=== PATIENT | female | born 1935 | race Caucasian/White ===

== ENCOUNTER 2016-09-19 20:25 | Inpatient (IN) | payer OTHER, MEDICARE ==
[2016-09-19 20:58] LABS: % IMMATURE GRANULYOCYTES 0.5 % (0.0-1.1); ABSOLUTE IMMATURE GRANULOCYTES 0.03 10^3/uL (0.00-0.10); ABSOLUTE NRBC COUNT 0.08 10^3/uL (0-0.01); ADD DIFF? NO; ADD MORPH? YES; ADD SCAN? NO; ATYPICAL LYMPHOCYTE FLAG 90 (0-99); FRAGMENT RBC FLAG 0 (0-99); HEMATOCRIT 39.8 % (38.0-47.0); HEMOGLOBIN 14.5 g/dL (12.6-16.3); LEFT SHIFT FLG 20 (0-99); LIPEMIA HEMOLYSIS FLAG 90 (0-99); MEAN CELL HEMOGLOBIN 33.3 pg (27.9-34.1); MEAN CELL HEMOGLOBIN CONCENTR. 36.4 g/dL (32.4-36.7); MEAN CELL VOLUME 91.3 fL (81.5-99.8); MEAN PLATELET VOLUME 10.9 fL (8.7-11.7); PLATELET CLUMPS FLAG 10 (0-99); PLATELET COUNT 90 10^3/uL (150-400); RED BLOOD CELL COUNT 4.36 10^6/uL (4.18-5.33); RED CELL DISTRIBUTION WIDTH 18.5 % (11.5-15.2)
[2016-09-19 21:05] LABS: NRBC-AUTO% 1.3 % (0.0-0.2)
[2016-09-19 21:10] LABS: ANION GAP 14 mEq/L (8-16); CALCIUM 8.7 mg/dL (8.5-10.4); CARBON DIOXIDE 23 mEq/l (22-31); CHLORIDE 99 mEq/L (97-110); GLOMERULAR FILTRATION RATE 24; GLUCOSE 103 mg/dL (70-100); POTASSIUM 3.2 mEq/L (3.5-5.2); SODIUM 136 mEq/L (134-144)
--- NOTE | 2016-09-19 21:16 | CPEKG ---
Heart Rate: 88 RR Interval: 682 P-R Interval: 124 QRSD Interval: 98 QT Interval: 344 QTC Interval: 417 P [place]: -9 QRS [place]: -30 T Wave [place]: 116 EKG Severity - ABNORMAL ECG - EKG Impression: SINUS RHYTHM EKG Impression: VENTRICULAR PREMATURE COMPLEX EKG Impression: LEFT AXIS DEVIATION EKG Impression: NONSPECIFIC T ABNORMALITIES, LATERAL LEADS Electronically Signed By: Mahogany Liao 19-Sep-2016 23:17:54
[2016-09-19 21:58] LABS: MACROCYTES 1+; PLATELET ESTIMATE DECREASED (ADEQ); POLYCHROMASIA 1+; SCHISTOCYTES 1+
[2016-09-19] MEDS ORDERED: NS 500 ML IV ONE (22:41)
--- NOTE | 2016-09-19 22:50 | EDPHY ---
H & P Smoking Status: Never smoked Time Seen by Provider: 09/19/16 20:38 HPI/ROS: CHIEF COMPLAINT: Unwitnessed fall HISTORY OF PRESENT ILLNESS: 81-year-old female presents to the emergency department after having an unwitnessed fall at home. Per EMS, the patient fell. The patient thinks that she slipped on something and then fell back and hit her head. She did not lose consciousness. She did pushed her lifeline and EMS transported to the emergency department. She denies a headache. Denies neck or back pain. Denies chest pain or difficulty breathing. He denies abdominal pain. She apparently has had an ongoing cough for last several days and was diagnosed with possible pneumonia today. She was started on Levaquin and took her 1st dose today. Patient also tells me that she has had diarrhea for last few days. No blood in her stool. No known fevers or chills. REVIEW OF SYSTEMS: Constitutional: No fever, no chills. Eyes: No double or blurry vision. ENT: No sore throat. Respiratory: Cough, no shortness of breath. Cardiac: No chest pain. Gastrointestinal: Diarrhea as above. No abdominal pain or vomiting Genitourinary: No dysuria. Musculoskeletal: No neck or back pain. Skin: No rashes. Neurological: No headache. (Mary Lou Randall) Past Medical/Surgical History: Anxiety, depression, migraine headaches, abdominal surgery (Mary Lou Randall) Social History: and lives in [place] (Mary Lou Randall) Physical Exam: General Appearance: Alert, no distress. 95% on room air. Afebrile. Eyes: Pupils equal and round. Extraocular motions are all intact. ENT: Mouth: Mucous membranes moist. Respiratory: No wheezing, rhonchi, or rales, lungs are clear to auscultation. Cardiovascular: Regular rate and rhythm. Gastrointestinal: Abdomen is soft and nontender, no masses, no rebound or guarding, bowel sounds normal. Neurological: Alert and oriented x 3, cranial nerves II through XII grossly intact Skin: Scalp hematoma to the right occiput of the scalp. No evidence of laceration or puncture wound. No bleeding. Warm and dry, no rashes. Musculoskeletal: Nontender to palpate along the cervical, thoracic or lumbar spine. Neck is supple. Extremities: Full range of motion and no peripheral edema. Psychiatric: Patient is oriented X 3, there is no agitation. (Mary Lou Randall) Constitutional: Initial Vital Signs Temperature (C) 36.6 C 09/19/16 20:57 Heart Rate 93 09/19/16 20:57 Respiratory Rate 14 09/19/16 20:57 Blood Pressure 117/45 L 09/19/16 20:57 O2 Sat (%) 95 09/19/16 20:57 O2 Delivery Mode Room Air Allergies/Adverse Reactions: prochlorperazine edisylate [From Compazine] Allergy (Severe, Verified 09/19/16 20:56) "LOST CONTROL OF NECK MUSCLES prochlorperazine maleate [From Compazine] Allergy (Severe, Verified 09/19/16 20: 56) "LOST CONTROL OF NECK MUSCLES Penicillins Allergy (Intermediate, Verified 09/19/16 20:56) Rash cocoa [chocolate] Allergy (Verified 09/19/16 20:56) divalproex sodium [From Depakote] Allergy (Verified 09/19/16 20:56) WHEAT SENSITIVITY Allergy (Uncoded 09/20/15 14:39) Home Medications: Medication Instructions Recorded Cholecalciferol Vit D3 [Vitamin D3 1,000 units PO DAILY 07/09/14 (*)] FLUoxetine [Prozac 20 MG (*)] 20 mg PO DAILY 07/09/14 Pantoprazole Sodium [Protonix 40mg 40 mg PO DAILYAC 07/09/14 (*)] Sumatriptan Succinate [Imitrex] 50 - 100 mg PO DAILY PRN 07/09/14 Zolpidem Tartrate [Ambien 5MG (*)] 5 mg PO HS 07/09/14 Herbals/Supplements -Info Only 1 ea PO DAILY 07/04/15 LORAZEPAM 09/19/16 Levaquin 09/19/16 Topamax 09/19/16 Medical Decision Making - Diagnostics Imaging: CT imaging of the head and cervical spine reveal nothing acute. No intracranial bleeding or fractures. (Mary Lou Randall) ED Course/Re-evaluation: The patient was evaluated and managed by the physician's blood donor unit assistant. My cosignature indicates that I reviewed the chart and I agree with the findings and plan of care as documented. I am the secondary supervising physician. ( Mahogany Liao) 81-year-old female presents after having an unwitnessed fall at home. Patient had CT imaging of her head and cervical spine which revealed nothing acute. Laboratory studies revealed normal white blood cell count. Chemistries reveal normal sodium, potassium 3.2, BUN 27, creatinine of 2. Her creatinine 1 month ago was 1.4. Clinically I think the patient is dehydrated. She did receive IV normal saline in the emergency department. Patient will be admitted to the hospital for further evaluation and IV hydration. Patient did not have a chest x-ray when she was diagnosed with pneumonia earlier today and therefore one was ordered in the emergency department. (Mary Lou Randall) Differential Diagnosis: Head injury including but not limited to concussion, skull fracture, intraparenchymal contusion, subarachnoid, subdural and epidural hematoma. (Mary Lou Randall) - Data Points Laboratory Results: Laboratory Results 09/19/16 20:26 09/19/16 20:26 09/19/16 09/19/16 20:26 20:26 WBC 6.04 10^3/uL 10^3/uL (3.80-9.50) RBC 4.36 10^6/uL 10^6/uL (4.18-5.33) Hgb 14.5 g/dL g/dL (12.6-16.3) Hct 39.8 % % (38.0-47.0) MCV 91.3 fL fL (81.5-99.8) MCH 33.3 pg pg (27.9-34.1) MCHC 36.4 g/dL g/dL (32.4-36.7) RDW 18.5 % H % (11.5-15.2) Plt Count 90 10^3/uL L 10^3/uL (150-400) MPV 10.9 fL fL (8.7-11.7) Neut % (Auto) 40.8 % % (39.3-74.2) Lymph % (Auto) 40.6 % % (15.0-45.0) [place] % (Auto) 17.9 % H % (4.5-13.0) Eos % (Auto) 0.0 % L % (0.6-7.6) Baso % (Auto) 0.2 % L % (0.3-1.7) Nucleat RBC Rel Count 1.3 % H % (0.0-0.2) Absolute Neuts (auto) 2.47 10^3/uL 10^3/uL (1.70-6.50) Absolute Lymphs (auto) 2.45 10^3/uL 10^3/uL (1.00-3.00) Absolute Monos (auto) 1.08 10^3/uL H 10^3/uL (0.30-0.80) Absolute Eos (auto) 0.00 10^3/uL L 10^3/uL (0.03-0.40) Absolute Basos (auto) 0.01 10^3/uL L 10^3/uL (0.02-0.10) Absolute Nucleated RBC 0.08 10^3/uL H 10^3/uL (0-0.01) Immature Gran % 0.5 % % (0.0-1.1) Immature Gran # 0.03 10^3/uL 10^3/uL (0.00-0.10) Platelet Estimate DECREASED L (ADEQ) Polychromasia 1+ H Oval Macrocytes 1+ H Schistocytes 1+ H Smear Review By Pending Sodium 136 mEq/L mEq/L (134-144) Potassium 3.2 mEq/L L mEq/L (3.5-5.2) Chloride 99 mEq/L mEq/L (97-110) Carbon Dioxide 23 mEq/l mEq/l (22-31) Anion Gap 14 mEq/L mEq/L (8-16) BUN 27 mg/dL H mg/dL (7-23) Creatinine 2.0 mg/dL H mg/dL (0.6-1.0) Estimated GFR 24 Glucose 103 mg/dL H mg/dL (70-100) Calcium 8.7 mg/dL mg/dL (8.5-10.4) Medications Given: Discontinued Medications Sodium Chloride (Ns) 500 mls @ 0 mls/hr IV ONCE ONE PRN Reason: Wide Open Stop: 09/19/16 22:42 Last Admin: 09/19/16 22:45 Dose: 500 mls Departure - Departure Disposition: [facility] Acute Clinical Impression: Dehydration Fall at home Qualifiers: Encounter type: initial encounter Qualified Code(s): W19.XXXA - Unspecified fall, initial encounter; Y92.099 - Unspecified place in other non-institutional residence as the place of occurrence of the external cause Diarrhea Qualifiers: Diarrhea type: unspecified type Qualified Code(s): R19.7 - Diarrhea, unspecified Condition: Good
[2016-09-20] MEDS ORDERED: ALBUTEROL 3 ML DEYVIAL IH PRN (00:11)
[2016-09-20] MEDS ORDERED: ONDANSETRON 4 MG/2 ML VIAL IVP PRN (00:11)
[2016-09-20] MEDS ORDERED: ACETAMINOPHEN 500 MG TAB PO PRN (00:11)
[2016-09-20] MEDS ORDERED: ONDANSETRON DISINTEGRATING 4 MG TAB PO PRN (00:11)
[2016-09-20] MEDS ORDERED: NS 1,000 ML IV SCH (00:15)
[2016-09-20] MEDS: oxyCODONE IR 5 MG TAB PO PRN ×2 (01:13→21:05)
[2016-09-20] MEDS: BENZONATATE 100 MG CAP PO PRN ×3 (01:13→21:05)
[2016-09-20] MEDS: ZOLPIDEM TARTRATE 5 MG TAB PO PRN ×2 (01:13→21:06)
--- NOTE | 2016-09-20 04:43 | PDGENHP ---
History and Physical - Chief Complaint fall - History of Present Illness Patient was seen and evaluated on 09/19/2016. Patient is an 81-year-old female with a history of migraine headaches, anxiety/ depression who presents to the ED with a fall. Patient states for the past 5 days she has had a cough that has been getting progressively worse, associated with generalized fatigue and loss of appetite. Cough is productive of thick phlegm. In addition, she has also developed occasional episodes of diarrhea in the past 1-2 days. She was seen by her PMD for her symptoms on the day of presentation, was diagnosed with bronchitis and initiated on Levaquin. Patient took her 1st dose of Levaquin today without adverse event. This evening patient was in her kitchen when she stepped on something wet on the floor, slipped and fell backward. She struck her head on the ground, but denies LOC, remembers the entire event. She then pressed her Life Alert and was taken to the ED by EMS. She denies any preceding chest pain, palpitations, lightheadedness, dizziness. On arrival to the ED patient was afebrile hemodynamically stable. Labs revealed elevated BUN creatinine from previous baseline, hypokalemia. Chest x- ray did not reveal any obvious infiltrate. She was given IV fluid hydration and admitted to the hospital service for further management. History Information - Allergies/Home Medication List Allergies/Adverse Reactions: prochlorperazine edisylate [From Compazine] Allergy (Severe, Verified 09/19/16 20:56) "LOST CONTROL OF NECK MUSCLES prochlorperazine maleate [From Compazine] Allergy (Severe, Verified 09/19/16 20: 56) "LOST CONTROL OF NECK MUSCLES Penicillins Allergy (Intermediate, Verified 09/19/16 20:56) Rash cocoa [chocolate] Allergy (Verified 09/19/16 20:56) divalproex sodium [From Depakote] Allergy (Verified 09/19/16 20:56) WHEAT SENSITIVITY Allergy (Uncoded 09/20/15 14:39) Home Medications: Cholecalciferol Vit D3 [Vitamin D3 (*)] 1,000 units PO DAILY 07/09/14 [Last Taken 07/04/15] FLUoxetine [Prozac 20 MG (*)] 20 mg PO DAILY 07/09/14 [Last Taken 07/04/15] Pantoprazole Sodium [Protonix 40mg (*)] 40 mg PO DAILYAC 07/09/14 [Last Taken ] Sumatriptan Succinate [Imitrex] 50 - 100 mg PO DAILY PRN 07/09/14 [Last Taken Unknown] Zolpidem Tartrate [Ambien 5MG (*)] 5 mg PO HS 07/09/14 [Last Taken Unknown] Herbals/Supplements -Info Only 1 ea PO DAILY 07/04/15 [Last Taken Unknown] LORAZEPAM 09/19/16 [Last Taken Unknown] Levaquin 09/19/16 [Last Taken Unknown] Topamax 09/19/16 [Last Taken Unknown] I have personally reviewed and updated: family history, medical history, social history, surgical history - Past Medical History Additional medical history: Chronic migraine headaches. Anxiety/depression - Surgical History Additional surgical history: Small-bowel resection - Family History Positive for: non-pertinent - Social History Smoking Status: Never smoked Alcohol Use: None Drug Use: None Additional social history: Patient lives alone in an independent living facility , uses cane to ambulate. Daughter is involved in her care. Review of Systems ROS: 10pt was reviewed & negative except for what was stated in HPI & below Physical Exam Temp Pulse Resp BP Pulse Ox 36.7 C 91 20 116/60 96 09/20/16 03:36 09/20/16 03:36 09/20/16 03:36 09/20/16 03:36 09/20/16 03:36 O2 (L/minute) 2 Constitutional: no apparent distress, appears nourished, not in pain Eyes: PERRL, anicteric sclera, EOMI Ears, Nose, Mouth, Throat: hearing normal, ears appear normal, no oral mucosal ulcers, dry mucous membranes Cardiovascular: regular rate and rhythym, no murmur, rub, or gallop, pulses symmetric bilaterally, No JVD, No edema Peripheral Pulses: 2+: dorsalis-pedis (R), dorsalis-pedis (L) Respiratory: no respiratory distress, no rales or rhonchi, clear to auscultation , expiratory wheeze (occasional wheeze) Gastrointestinal: normoactive bowel sounds, soft, non-tender abdomen, no palpable masses Genitourinary: no bladder fullness, no bladder tenderness Skin: warm, normal color, no rashes or abrasions, no fluctuance, no induration, No mottled Musculoskeletal: full muscle strength, no muscle tenderness, normal joint ROM, no joint effusions Neurologic: AAOx3, sensation intact bilaterally, CN II-XII Intact, No weakness, No numbness, No pronator drift, No facial droop Psychiatric: interacting appropriately, not anxious, not encephalopathic, thought process linear Lab Data & Imaging Review 09/20/16 04:15 09/20/16 04:15 WBC 6.04 10^3/uL (3.80-9.50) 09/19/16 20: RBC 4.36 10^6/uL (4.18-5.33) 09/19/16 20: Hgb 14.5 g/dL (12.6-16.3) 09/19/16 20: Hct 39.8 % (38.0-47.0) 09/19/16 20: MCV 91.3 fL (81.5-99.8) 09/19/16 20: MCH 33.3 pg (27.9-34.1) 09/19/16 20: MCHC 36.4 g/dL (32.4-36.7) 09/19/16 20: RDW 18.5 % (11.5-15.2) H 09/19/16 20: Plt Count 90 10^3/uL (150-400) L 09/19/16 20: MPV 10.9 fL (8.7-11.7) 09/19/16 20: Neut % (Auto) 40.8 % (39.3-74.2) 09/19/16 20: Lymph % (Auto) 40.6 % (15.0-45.0) 09/19/16 20: [place] % (Auto) 17.9 % (4.5-13.0) H 09/19/16 20: Eos % (Auto) 0.0 % (0.6-7.6) L 09/19/16 20: Baso % (Auto) 0.2 % (0.3-1.7) L 09/19/16 20: Nucleat RBC Rel Count 1.3 % (0.0-0.2) H 09/19/16 20:26 Absolute Neuts (auto) 2.47 10^3/uL (1.70-6.50) 09/19/16 20:26 Absolute Lymphs (auto) 2.45 10^3/uL (1.00-3.00) 09/19/16 20:26 Absolute Monos (auto) 1.08 10^3/uL (0.30-0.80) H 09/19/16 20:26 Absolute Eos (auto) 0.00 10^3/uL (0.03-0.40) L 09/19/16 20:26 Absolute Basos (auto) 0.01 10^3/uL (0.02-0.10) L 09/19/16 20:26 Absolute Nucleated RBC 0.08 10^3/uL (0-0.01) H 09/19/16 20: Immature Gran % 0.5 % (0.0-1.1) 09/19/16 20: Immature Gran # 0.03 10^3/uL (0.00-0.10) 09/19/16 20:26 Platelet Estimate DECREASED (ADEQ) L 09/19/16 20:26 Polychromasia 1+ H 09/19/16 20:26 Oval Macrocytes 1+ H 09/19/16 20:26 Schistocytes 1+ H 09/19/16 20:26 Sodium 136 mEq/L (134-144) 09/19/16 20:26 Potassium 3.2 mEq/L (3.5-5.2) L 09/19/16 20:26 Chloride 99 mEq/L (97-110) 09/19/16 20:26 Carbon Dioxide 23 mEq/l (22-31) 09/19/16 20:26 Anion Gap 14 mEq/L (8-16) 09/19/16 20:26 BUN 27 mg/dL (7-23) H 09/19/16 20:26 Creatinine 2.0 mg/dL (0.6-1.0) H 09/19/16 20:26 Estimated GFR 24 09/19/16 20:26 Glucose 103 mg/dL (70-100) H 09/19/16 20:26 Calcium 8.7 mg/dL (8.5-10.4) 09/19/16 20:26 Visualized and Interpreted Chest x-ray results: Yes Chest X-Ray results: no infiltrate, normal Visualized and Interpreted imaging results: Yes Interpretation: CThead: no acute intracranial abnormality. CT c-spine: no acute fracture Visualized and Interpreted EKG results: Yes EKG Interpretation: Positive for: normal sinsus rhythm (lateral T wave flattening) Assessment & Plan Assessment: Patient is an 81-year-old female with history of chronic migraine headaches who presents to the ED after a mechanical fall in the setting of 1 week upper respiratory infection symptoms. ED workup reveals evidence of dehydration, no acute fracture from fall. Plan: # fall Patient's description of fall appears consistent with a mechanical fall ( slipped and fell). She denies any associated cardiac symptoms, but labs do show evidence of dehydration, which likely contributed to the fall. EKG does not show any obvious abnormalities. Will replete and monitor electrolytes, check troponin, check TTE and obtain PT/OT evaluation. # HOWARD BUN and Cr are elevated and patient appears dry on presentation, consistent with pre-renal HOWARD. Will continue gentle IVF hydration, trend BMP and replete electrolytes. # acute bronchitis Patient reports worsening cough x 5 days, for which she was evaluated by her PMD and initiated on treatment for acute bronchitis. On presentation today, patient is afebrile, without leukocytosis and cxr does not reveal infiltrate, however, patient has a thick, wet cough. Will check flu swab and continue treatment for bronchitis with levaquin. # thrombocytopenia This appears to be a new problem based on review of old labs. Etiology of this unclear, possibly medication related vs related to acute infection. No associated coagulopathy. Will hold DVT ppx and trend CBC. # chronic migraine headaches Patient denies VIRAMONTES today. Will continue home regimen prn. # anxiety/depression Stable, cont home meds. # dispo: admit to inpt service for likely > 2 [place] stay # gen: regular diet DVT ppx: SCDs Full code
[2016-09-20 05:05] LABS: ABSOLUTE NRBC COUNT 0.04 10^3/uL (0-0.01); ADD DIFF? YES; ADD MORPH? NO; FRAGMENT RBC FLAG 0 (0-99); HEMATOCRIT 32.1 % (38.0-47.0); HEMOGLOBIN 11.6 g/dL (12.6-16.3); LEFT SHIFT FLG 40 (0-99); LIPEMIA HEMOLYSIS FLAG 90 (0-99); MEAN CELL HEMOGLOBIN 33.4 pg (27.9-34.1); MEAN CELL HEMOGLOBIN CONCENTR. 36.1 g/dL (32.4-36.7); MEAN CELL VOLUME 92.5 fL (81.5-99.8); MEAN PLATELET VOLUME 10.1 fL (8.7-11.7); NRBC-AUTO% 0.7 % (0.0-0.2); PLATELET CLUMPS FLAG 0 (0-99); PLATELET COUNT 71 10^3/uL (150-400); RED BLOOD CELL COUNT 3.47 10^6/uL (4.18-5.33)
[2016-09-20] MEDS ORDERED: PROTOCOL MAGNESIUM 1 DOSE IV PRN (05:13)
[2016-09-20] MEDS ORDERED: PROTOCOL POTASSIUM 1 DOSE MISC PRN (05:13)
[2016-09-20 05:20] LABS: INR 1.19 (0.83-1.16); PROTIME(PATIENT) 15.1 SEC (12.0-15.0)
[2016-09-20 05:21] LABS: APTT 29.8 SEC (23.0-38.0)
[2016-09-20 05:31] LABS: ADD SCAN? NO; ATYPICAL LYMPHOCYTE FLAG 120 (0-99)
[2016-09-20 05:35] LABS: ANION GAP 10 mEq/L (8-16); CALCIUM 7.6 mg/dL (8.5-10.4); CARBON DIOXIDE 21 mEq/l (22-31); CHLORIDE 102 mEq/L (97-110); CREATININE 1.6 mg/dL (0.6-1.0); GLOMERULAR FILTRATION RATE 31; GLUCOSE 98 mg/dL (70-100); MAGNESIUM 1.3 mg/dL (1.6-2.3); POTASSIUM 2.9 mEq/L (3.5-5.2); SODIUM 133 mEq/L (134-144)
[2016-09-20 05:55] LABS: COLOR YELLOW; LEUKOCYTE ESTERASE,URINE NEGATIVE (NEGATIVE); NITRITE,URINE NEGATIVE (NEGATIVE)
[2016-09-20] MEDS ORDERED: IPRATROPIUM/ALBUTEROL 3 ML DEYVIAL IH SCH (06:00)
[2016-09-20] MEDS ORDERED: HEPARIN 5,000 UNIT/0.5 ML SYR SC SCH (06:00)
[2016-09-20] MEDS ORDERED: IPRATROPIUM/ALBUTEROL 3 ML DEYVIAL IH PRN (06:00)
[2016-09-20 06:25] LABS: TROPONIN I 0.051 ng/mL (0-0.034)
[2016-09-20 06:52] LABS: PLATELET ESTIMATE DECREASED (ADEQ); POLYCHROMASIA 1+
[2016-09-20] MEDS ORDERED: POTASSIUM CL 10 MEQ TAB PO ONE ×2 (07:43→19:21)
[2016-09-20] MEDS ORDERED: MAGNESIUM SULF 2 GM/WATER 50 ML IV ONE (07:45)
[2016-09-20] MEDS ORDERED: OSELTAMIVIR PHOSPHATE 75 MG CAP PO SCH ×2 (08:00→08:29)
[2016-09-20] MEDS ORDERED: POTASSIUM CL 20 MEQ TAB PO ONE (08:28)
[2016-09-20] MEDS ORDERED: levOFLOXACIN 500 MG/DEXTROSE 100 ML IV SCH (09:00)
[2016-09-20] MEDS: OSELTAMIVIR 6 MG/ML UDSYR PO SCH ×2 (09:29→18:01)
--- NOTE | 2016-09-20 11:01 | ECHO ---
[id number] + + [address] : : [place] [address] : : [phone] + Adult Echocardiographic Report + -----+ :Name: CIERRA JASMINE KStudy Date: 09/20/2016 08:53 AM BP: 115/57 mmHg : : Hospital Admission Number: [id number] Location : 340: :: 1935 Gender: Female Height: 63 in : :Age: 81 yrs Race: WH Weight: 163 lb : :Reason For Study: r/o cardiomypathy : : BSA: 1.8 meters2 : :History: fall, r/o cardiomyopathy : + -----+ MMode/2D Measurements \T\ Calculations RVDd: 3.0 cm FS: 37.4 % Ao root diam: 3.2 cm LVIDd: 3.5 cm EDV(Teich): 49.2 ml LVIDs: 2.2 cm ESV(Teich): 15.5 ml EF(Teich): 68.5 % Normal Measurement Values: + + :LVIDd (3.5-5.7cm) IVSd (0.6-1.1cm) LVPWd (0.6-1.1cm) Aortic Root (2.0-3.7cm)Left Atrium (1.5-4.0cm): :LV Vol(d) (76-115ml) LV Vol(s) (29-48ml) Ejec Fraction (50-65%)PV Scott (0.6- 1.2m/s) TV Scott (0.4-1.0m/s) : :MV E Scott (0.8-1.0m/s)MV A Scott (0.3-1.0m/s)LVOT Scott (0.7-1.2m/s) Asc Ao Scott ( 0.9-1.8m/s) : + + Doppler Measurements \T\ Calculations MV E max scott: Ao V2 max: LV V1 max: PA V2 max: 99.7 cm/sec 145.2 cm/sec 114.5 cm/sec 79.3 cm/sec MV A max scott: Ao max PG: LV V1 max PG: PA max P.2 cm/sec 8.4 mmHg 5.2 mmHg 2.5 mmHg MV E/A: 0.99 MV dec time: 0.20 sec TR max scott: 266.0 cm/sec TR max P.3 mmHg RAP systole: 5.0 mmHg RVSP(TR): 33.3 mmHg Left Ventricle The left ventricle is normal in size and function. There is normal left ventricular wall thickness. Ejection Fraction = 65-70%. Regional wall motion abnormalities cannot be excluded due to limited visualization. Right Ventricle The right ventricle is normal in size and function. Atria The left atrial size is normal. Right atrial size is normal. Mitral Valve There is mild mitral annular calcification. There is no mitral valve stenosis. There is mild mitral regurgitation. Tricuspid Valve The tricuspid valve is normal in structure and function. There is no tricuspid stenosis. There is mild tricuspid regurgitation. Right ventricular systolic pressure is 33mmHg. Aortic Valve The aortic valve is trileaflet. Mild Aortic Valve Calcification. There is no aortic stenosis. Trace to mild aortic regurgitation. Pulmonic Valve The pulmonic valve is not well visualized. Great Vessels The aortic root is normal size. Pericardium/Pleural There is no pericardial effusion. Conclusion A two-dimensional transthoracic echocardiogram with M-mode and Doppler was performed. Technically difficult due to non-stop and uncontrollable coughing. The left ventricle is normal in size and function. Ejection Fraction = 65-70%. There is mild mitral regurgitation. There is mild tricuspid regurgitation. Right ventricular systolic pressure is 33mmHg. Trace to mild aortic regurgitation. Compared to previous echocardiogram 07/05/2015 there has been no significant change. Final Reading Physician: Lucinda Sanchez signed on 09/20/2016 11:00 AM Ordering Physician: Alison Colin Performed By: Mary Lou Drew
--- NOTE | 2016-09-20 11:23 | CPEKG ---
Heart Rate: 84 RR Interval: 714 P-R Interval: 128 QRSD Interval: 96 QT Interval: 372 QTC Interval: 440 P [place]: -16 QRS [place]: -32 T Wave [place]: 89 EKG Severity - BORDERLINE ECG - EKG Impression: SINUS RHYTHM EKG Impression: LEFT AXIS DEVIATION EKG Impression: BORDERLINE T WAVE ABNORMALITIES Electronically Signed By: Duy Hidalgo 20-Sep-2016 12:11:02
--- NOTE | 2016-09-20 11:39 | HOSPPROG ---
Hospitalist Progress Note Assessment/Plan: # fall with [facility] - CT head shows right parietal scalp hematoma, no intracranial abnormalities. Hx c/w mechanical fall. Volume depletion / orthostasis in setting of influenza may have played a role. EKG and echo reassuring. PT/OT evals today. # HOWARD Likely pre-renal, Cr improved to 1.6 from 2.0 with IVF's. Continue IVF's, follow. # Influenza / bronchitis Cont renally dosed Tamiflu, Levaquin. # Hypokalemia / Hypomagnesemia Replace mag, then potassium, protocols ordered. # right hip pain - check xray # thrombocytopenia ? suppression in setting of viral illness. No associated coagulopathy. Defer pplx Lovenox for now, trend. # chronic migraine headaches Continue home regimen prn. # anxiety/depression Stable, cont home meds. # dispo: cont inpt # gen: Subjective: Doing okay, frequent dry cough. No fevers. Weak. Denies CP or SOB. Objective: Vital Signs Temp Pulse Resp BP Pulse Ox 36.4 C 90 93 H 115/57 L 21 L 09/20/16 08:00 09/20/16 08:00 09/20/16 08:00 09/20/16 08:00 09/20/16 08:00 Laboratory Results 09/20/16 04:15 09/20/16 04:15 09/19/16 09/20/16 09/21/16 05:59 05:59 05:59 Intake Total 250 Balance 250 PT 15.1 SEC (12.0-15.0) H 09/20/16 04:15 INR 1.19 (0.83-1.16) H 09/20/16 04:15 - Physical Exam Constitutional: no apparent distress Eyes: PERRL Ears, Nose, Mouth, Throat: moist mucous membranes Cardiovascular: regular rate and rhythym Respiratory: no respiratory distress, clear to auscultation Gastrointestinal: normoactive bowel sounds, soft, non-tender abdomen Skin: warm Neurologic: AAOx3 Psychiatric: interacting appropriately ICD10 Worksheet Patient Problems: Problems Problem Status Onset Dehydration Acute Diarrhea Acute Fall at home Acute Syncope Acute
[2016-09-20] MEDS: NS W/ 20 KCl/L 1,000 ML IV SCH (12:40)
[2016-09-20 19:01] LABS: POTASSIUM 3.7 mEq/L (3.5-5.2)
[2016-09-20] MEDS: TOPIRAMATE 25 MG TAB PO SCH (21:06)
[2016-09-21] MEDS: NS W/ 20 KCl/L 1,000 ML IV SCH (02:19)
[2016-09-21 04:40] LABS: HEMATOCRIT 29.8 % (38.0-47.0); HEMOGLOBIN 10.4 g/dL (12.6-16.3); MEAN CELL HEMOGLOBIN 32.9 pg (27.9-34.1); MEAN CELL HEMOGLOBIN CONCENTR. 34.9 g/dL (32.4-36.7); MEAN CELL VOLUME 94.3 fL (81.5-99.8); RED BLOOD CELL COUNT 3.16 10^6/uL (4.18-5.33); RED CELL DISTRIBUTION WIDTH 18.5 % (11.5-15.2)
[2016-09-21 05:08] LABS: ANION GAP 7 mEq/L (8-16); CALCIUM 7.9 mg/dL (8.5-10.4); CARBON DIOXIDE 18 mEq/l (22-31); CHLORIDE 108 mEq/L (97-110); CREATININE 1.1 mg/dL (0.6-1.0); GLOMERULAR FILTRATION RATE 47; GLUCOSE 88 mg/dL (70-100); MAGNESIUM 1.7 mg/dL (1.6-2.3); POTASSIUM 4.3 mEq/L (3.5-5.2); SODIUM 133 mEq/L (134-144)
[2016-09-21] MEDS ORDERED: NON-FORMULARY NEW DRUG (Fluoxetine Hcl [Fluoxetine Hcl] 40 MG) PO SCH (09:00)
[2016-09-21] MEDS: PANTOPRAZOLE SODIUM 40 MG TAB PO SCH (09:18)
[2016-09-21] MEDS: FLUoxetine 20 MG CAP PO SCH (09:18)
[2016-09-21] MEDS: MULTIVITAMINS 1 EACH TAB PO SCH (09:18)
[2016-09-21] MEDS: TOPIRAMATE 25 MG TAB PO SCH ×2 (09:18→21:45)
[2016-09-21] MEDS: OSELTAMIVIR 6 MG/ML UDSYR PO SCH ×2 (09:20→18:34)
[2016-09-21] MEDS: levOFLOXACIN 250 MG/DEXTROSE 50 ML IV SCH (09:23)
[2016-09-21] MEDS: BENZONATATE 100 MG CAP PO PRN ×2 (09:38→15:02)
[2016-09-21] MEDS ORDERED: MAGNESIUM SULF 1 GM/DEXTROSE 100 ML IV ONE (10:30)
[2016-09-21] MEDS: GUAIFENESIN/DM 10 ML UDCUP PO PRN ×2 (10:55→21:45)
--- NOTE | 2016-09-21 11:19 | HOSPPROG ---
Hospitalist Progress Note Assessment/Plan: # fall with [facility] - CT head shows right parietal scalp hematoma, no intracranial abnormalities. Hx c/w mechanical fall. Volume depletion / orthostasis in setting of influenza may have played a role. EKG and echo reassuring. PT/OT evals today. # HOWARD Likely pre-renal, Cr improved to 1.1 from 2.0 with IVF's. Continue IVF's at low rate today due to poor oral intake. # Influenza / bronchitis Cont renally dosed Tamiflu, Levaquin, nebs, anti-tussives, supportive care. # Hypokalemia / Hypomagnesemia Cont to replace as needed, monitor. # right hip pain - related to fall, no fracture on xray, improved today. # thrombocytopenia ? suppression in setting of viral illness. No associated coagulopathy. Defer pplx Lovenox for now, trend. # chronic migraine headaches Continue home regimen prn. # anxiety/depression Stable, cont home meds. # dispo: cont inpt, PT/OT # DVT PPLX: SCDs, ambulation, Lovenox contraindicated due to low plts Subjective: Pt still coughing quite a bit. No fevers. Poor oral intake, but good uop. No CP or SOB, no hypoxemia. Objective: Vital Signs Temp Pulse Resp BP Pulse Ox 36.6 C 86 18 116/45 L 91 L 09/21/16 07:31 09/21/16 07:31 09/21/16 07:31 09/21/16 07:31 09/21/16 07:31 Laboratory Results 09/21/16 04:17 09/21/16 04:17 09/20/16 09/21/16 09/22/16 05:59 05:59 05:59 Intake Total 250 2400 250 Output Total 1750 200 Balance 250 650 50 PT 15.1 SEC (12.0-15.0) H 09/20/16 04:15 INR 1.19 (0.83-1.16) H 09/20/16 04:15 - Physical Exam Constitutional: no apparent distress Eyes: PERRL Ears, Nose, Mouth, Throat: moist mucous membranes Cardiovascular: regular rate and rhythym Respiratory: no respiratory distress, bronchial breath sounds Gastrointestinal: normoactive bowel sounds, soft, non-tender abdomen Skin: warm Musculoskeletal: full muscle strength Neurologic: AAOx3 Psychiatric: interacting appropriately ICD10 Worksheet Patient Problems: Problems Problem Status Onset Dehydration Acute Diarrhea Acute Fall at home Acute Syncope Acute
[2016-09-21] MEDS: NS 1,000 ML IV SCH (11:37)
[2016-09-21] MEDS: oxyCODONE IR 5 MG TAB PO PRN (21:45)
[2016-09-21] MEDS: ZOLPIDEM TARTRATE 5 MG TAB PO PRN (21:45)
[2016-09-22 04:51] LABS: HEMATOCRIT 27.7 % (38.0-47.0); HEMOGLOBIN 9.7 g/dL (12.6-16.3); MEAN CELL HEMOGLOBIN 33.6 pg (27.9-34.1); MEAN CELL VOLUME 95.8 fL (81.5-99.8); RED BLOOD CELL COUNT 2.89 10^6/uL (4.18-5.33)
[2016-09-22 05:04] LABS: ANION GAP 8 mEq/L (8-16); CALCIUM 7.8 mg/dL (8.5-10.4); CARBON DIOXIDE 17 mEq/l (22-31); CHLORIDE 106 mEq/L (97-110); CREATININE 0.9 mg/dL (0.6-1.0); GLOMERULAR FILTRATION RATE 60; GLUCOSE 88 mg/dL (70-100); MAGNESIUM 1.7 mg/dL (1.6-2.3); POTASSIUM 4.1 mEq/L (3.5-5.2); SODIUM 131 mEq/L (134-144)
[2016-09-22] MEDS ORDERED: MAGNESIUM SULF 1 GM/DEXTROSE 100 ML IV ONE (07:16)
[2016-09-22] MEDS: TOPIRAMATE 25 MG TAB PO SCH ×2 (08:11→21:15)
[2016-09-22] MEDS: MULTIVITAMINS 1 EACH TAB PO SCH (08:11)
[2016-09-22] MEDS: PANTOPRAZOLE SODIUM 40 MG TAB PO SCH (08:11)
[2016-09-22] MEDS: FLUoxetine 20 MG CAP PO SCH (08:11)
[2016-09-22] MEDS ORDERED: OSELTAMIVIR 6 MG/ML UDSYR PO SCH (08:23)
[2016-09-22] MEDS: OSELTAMIVIR 6 MG/ML UDSYR PO SCH ×2 (09:55→17:11)
[2016-09-22] MEDS: levOFLOXACIN 250 MG/DEXTROSE 50 ML IV SCH (09:56)
[2016-09-22] MEDS ORDERED: SUMAtriptan 50 MG TAB PO ONE (14:19)
--- NOTE | 2016-09-22 14:27 | HOSPPROG ---
Hospitalist Progress Note Assessment/Plan: # fall with CH[facility] - CT head shows right parietal scalp hematoma, no intracranial abnormalities. Hx c/w mechanical fall. Volume depletion / orthostasis in setting of influenza may have played a role. EKG and echo reassuring. PT/OT evals recommending home health. # HOWARD Likely pre-renal, Cr normalized with IVF's. Continue IVF's due to poor oral intake. # Influenza / bronchitis Cont renally dosed Tamiflu (CrCl still <60 despite improved renal function), Levaquin, nebs, anti-tussives, supportive care. #Hyponatremia - Na trending down. Suspect related to poor oral intake, needs solute. -increase NS tonight -encourage higher solute intake #Migraine headache -avoid anti-platelets (pt asking for excedrin) -will give imitrex now # Hypokalemia / Hypomagnesemia Cont to replace as needed, monitor. # right hip pain - related to fall, no fracture on xray, improved today. # thrombocytopenia suspect suppression in setting of viral illness. Plts trending down still. No associated coagulopathy. Defer pplx Lovenox for now, trend. # anxiety/depression Stable, cont home meds. # dispo: cont inpt, PT/OT, planning for home health PT/OT # DVT PPLX: SCDs, ambulation, Lovenox contraindicated due to low plts Subjective: Pt c/o migraine munson. No fevers/chills. Cough improved. No CP or SOB. Still poor oral intake. Objective: Vital Signs Temp Pulse Resp BP Pulse Ox 36.4 C 81 15 113/46 L 93 09/22/16 11:38 09/22/16 11:38 09/22/16 11:38 09/22/16 11:38 09/22/16 11:38 Laboratory Results 09/22/16 04:25 09/22/16 04:25 09/21/16 09/22/16 09/23/16 05:59 05:59 05:59 Intake Total 2400 3700 750 Output Total 1750 1200 Balance 650 2500 750 PT 15.1 SEC (12.0-15.0) H 09/20/16 04:15 INR 1.19 (0.83-1.16) H 09/20/16 04:15 - Physical Exam Constitutional: no apparent distress Eyes: PERRL Ears, Nose, Mouth, Throat: moist mucous membranes Cardiovascular: regular rate and rhythym Respiratory: no respiratory distress, clear to auscultation Gastrointestinal: normoactive bowel sounds, soft, non-tender abdomen Skin: warm Musculoskeletal: full muscle strength Neurologic: AAOx3 Psychiatric: interacting appropriately ICD10 Worksheet Patient Problems: Problems Problem Status Onset Dehydration Acute Diarrhea Acute Fall at home Acute Syncope Acute
[2016-09-22] MEDS: NS 1,000 ML IV SCH ×3 (14:45→21:15)
[2016-09-22] MEDS: SODIUM CHLORIDE 1,000 MG TAB PO SCH (17:11)
[2016-09-22 18:05] LABS: POTASSIUM 4.1 mEq/L (3.5-5.2)
[2016-09-22] MEDS: BENZONATATE 100 MG CAP PO PRN (21:14)
[2016-09-22] MEDS: oxyCODONE IR 5 MG TAB PO PRN (21:15)
[2016-09-22] MEDS: ZOLPIDEM TARTRATE 5 MG TAB PO PRN (21:15)
[2016-09-23] MEDS: NS 1,000 ML IV SCH (04:46)
[2016-09-23 04:50] LABS: HEMATOCRIT 28.7 % (38.0-47.0); MEAN CELL HEMOGLOBIN 33.4 pg (27.9-34.1); MEAN CELL HEMOGLOBIN CONCENTR. 34.8 g/dL (32.4-36.7); RED BLOOD CELL COUNT 2.99 10^6/uL (4.18-5.33); RED CELL DISTRIBUTION WIDTH 19.1 % (11.5-15.2)
[2016-09-23 04:56] LABS: ANION GAP 6 mEq/L (8-16); CALCIUM 7.8 mg/dL (8.5-10.4); CARBON DIOXIDE 20 mEq/l (22-31); CHLORIDE 109 mEq/L (97-110); CREATININE 0.9 mg/dL (0.6-1.0); GLOMERULAR FILTRATION RATE 60; GLUCOSE 94 mg/dL (70-100); MAGNESIUM 1.6 mg/dL (1.6-2.3); POTASSIUM 3.9 mEq/L (3.5-5.2); SODIUM 135 mEq/L (134-144)
[2016-09-23] MEDS ORDERED: POTASSIUM CL 10 MEQ TAB PO ONE (07:28)
[2016-09-23] MEDS ORDERED: MAGNESIUM SULF 1 GM/DEXTROSE 100 ML IV ONE (07:29)
[2016-09-23 07:34] VITALS: RESP 15; O2SAT 91
[2016-09-23] MEDS: FLUoxetine 20 MG CAP PO SCH (07:52)
[2016-09-23] MEDS: BENZONATATE 100 MG CAP PO PRN (07:52)
[2016-09-23] MEDS: SODIUM CHLORIDE 1,000 MG TAB PO SCH (07:52)
[2016-09-23] MEDS: PANTOPRAZOLE SODIUM 40 MG TAB PO SCH (07:53)
[2016-09-23] MEDS: GUAIFENESIN/DM 10 ML UDCUP PO PRN (07:53)
[2016-09-23] MEDS: MULTIVITAMINS 1 EACH TAB PO SCH (07:53)
[2016-09-23] MEDS: TOPIRAMATE 25 MG TAB PO SCH (07:54)
[2016-09-23] MEDS: OSELTAMIVIR 6 MG/ML UDSYR PO SCH (07:55)
[2016-09-23] MEDS: oxyCODONE IR 5 MG TAB PO PRN (07:55)
[2016-09-23] MEDS: levOFLOXACIN 250 MG/DEXTROSE 50 ML IV SCH (11:21)
--- NOTE | 2016-09-23 11:44 | PDIAF ---
- Diagnosis Diagnosis: Influenza, hypoxemia, thrombocytopenia Code Status: Full Code - Medication Management Discharge Medications: Medications to Continue on Transfer Pantoprazole Sodium [Protonix 40mg (*)] 40 mg PO DAILYAC 07/09/14 [Last Taken ] Sumatriptan Succinate [Imitrex] 50 - 100 mg PO DAILY PRN 07/09/14 [Last Taken Unknown] Zolpidem Tartrate [Ambien 5MG (*)] 5 mg PO HS 07/09/14 [Last Taken Unknown] Herbals/Supplements -Info Only 1 ea PO DAILY 07/04/15 [Last Taken Unknown] Fluoxetine HCl 40 mg PO DAILY 09/20/16 [Last Taken 09/18/16] Ibandronate Sodium 150 mg PO Q30D 09/20/16 [Last Taken 08/27/16] Multivitamins [Multivitamin (*)] 1 each PO DAILY 09/20/16 [Last Taken Unknown] Topiramate [Topamax 25MG (*)] 25 mg PO BID 09/20/16 [Last Taken 09/19/16] levOFLOXACIN [levAQUIN (*)] 500 mg PO DAILY 09/20/16 [Last Taken 09/19/16] Oseltamivir Phosphate [Tamiflu Oral Suspension] 30 mg PO BIDMEAL #3 ml 09/23/16 [Last Taken Unknown] Discharge Medications: Refer to the Discharge Home Medication list for PRN reason. - Orders Services needed: Home Care, Physical Therapy, Occupational Therapy Home Care Face to Face: I certify that this patient was under my care and that I had the required [id number] encounter meeting the encounter requirements on the discharge day. My findings support the fact that the patient is homebound as defined in CMS Chapter 7 Medicare Benefits Manual 30.1.1, The condition of the patient is such that there exists a normal inability to leave home and consequently, leaving home would require a considerable and taxing effort. Diet Recommendation: no restrictions on diet - Labs/Radiology CBC Date: 09/29/16 (recheck plts, results to PCP) - Follow Up Care Current Providers and Referrals: Zachary Espinoza MD [Primary Care Provider] - As per Instructions
[2016-09-23 13:35] VITALS: BP 121/62; PULSE 94; TEMP 98.2
--- NOTE | 2016-09-23 20:48 | GDS ---
[f rep st] DISCHARGE SUMMARY DISCHARGE DIAGNOSES: 1. Acute on chronic hypoxemic respiratory failure secondary to influenza and bronchitis. 2. Influenza A. 3. Acute kidney injury, resolved. 4. Hyponatremia, resolved. 5. Hypokalemia, hypomagnesemia, resolved. 6. Thrombocytopenia, likely secondary to viral suppression with no evidence of bleeding. 7. Fall with closed-head injury. 8. Anxiety, depression. IMAGING/PROCEDURES: 1. Head CT, September 19, 2016, showed a right parietal scalp hematoma but no evidence of acute intracr anial injury. 2. Cervical spine CT, September 19, 2016, showed no acute fracture or other acute abnormalities. 3. Chest x-ray, September 19, 2016, negative for pneumonia or any acute cardiopulmonary abnormality. 4. Hip x-ray, September 20, 2016, was negative for fracture. CONSULTANTS: None. HISTORY: For details, please see dictated history and physical dated September 20, 2016. In brief, the patient is an 81-year-old female, history of anxiety, depression, and migraine headaches, who prese nts to the emergency department after a fall in the setting of upper respiratory symptoms, fatigue a nd poor oral intake. She was admitted to the hospital for further management. HOSPITAL COURSE: The patient was found to be positive for influenza A. She underwent brain imaging as above, which revealed a scalp hematoma. No other intracranial abnormalities. She had PT and OT evaluations, and will go home with home health for ongoing therapy needs. BUN and creatinine were elevated on admission, likely prerenal in origin. This improved with IV hydration. She was treated with Tamiflu and Levaquin for acute bronchitis in the setting of influenza. In addition, she was f ound to have thrombocytopenia which is suspected to be bone marrow suppression in the setting of inf luenza. Her platelets are now stable around 60,000. She has had no evidence of bleeding. She will need a followup CBC in 1 week to ensure this continues to improve. She is advised to return to the emergency department should she have any bleeding complications. I also recommend that she hold he r Excedrin and not take any aspirin until her platelet level is over 100. DISPOSITION: Patient is discharged home in stable condition with home health services and home oxyg en at 2 L per minute. FOLLOWUP: 1. Dr. Zachary Espinoza, primary care provider. 2. Follow up CBC in 1 week to recheck her platelets. 3. Follow up with PCP to recheck her CBC as well as her oxygen saturations to determine the need fo r ongoing oxygen supplementation. DISCHARGE MEDICATIONS: Please see [facility] for complete updated outpatient medication list. New me dications on discharge include Tamiflu 30 mg p.o. b.i.d. for 3 more doses. She will complete her ou tpatient Levaquin prescription for a total of 1 week of antibiotics. Held medications at discharge include Excedrin until her platelet level has recovered. She will continue all of her other outpati ent medications as prescribed. /[id number]/MODL
== END 2016-09-23 14:35 | disposition home health service (06) | DRG 193 ==
LOC: EDBD → EDUNIT# → F3N 09-20 00:04 → OBSVTOIN 09-20 00:11
PROVIDERS: ADMIT Internal Medicine; ATTEND Internal Medicine
DX: J10.1 Influenza due to other identified influenza virus with other respiratory manifestations (principal); J96.21 Acute and chronic respiratory failure with hypoxia; N17.9 Acute kidney failure, unspecified; E87.1 Hypo-osmolality and hyponatremia; J40 Bronchitis, not specified as acute or chronic; E87.6 Hypokalemia; D69.59 Other secondary thrombocytopenia; F41.8 Other specified anxiety disorders; E86.0 Dehydration; G43.909 Migraine, unspecified, not intractable, without status migrainosus; S00.03XA Contusion of scalp, initial encounter; W01.0XXA Fall on same level from slipping, tripping and stumbling without subsequent striking against object, initial encounter; Y92.019 Unspecified place in single-family (private) house as the place of occurrence of the external cause
CPT/HCPCS: 97161-GP; 97165-GO; 97530-GO; 97530-GP; 97535-GO; G8978-GP-CI; G8979-GP-CI; G8987-GO-CJ; G8988-GO-CI; J1956; J3475

== ENCOUNTER → 2016-10-17 | Outpatient (CLI) | payer OTHER, MEDICARE | LOC: BMCIMAGING 14:29 | PROVIDERS: ATTEND Internal Medicine | DX: R09.02 Hypoxemia (principal); R00.0 Tachycardia, unspecified ==

== ENCOUNTER 2016-11-17 09:35 | Inpatient (IN) | payer OTHER, MEDICARE ==
--- NOTE | 2016-11-17 10:10 | EDPHY ---
H & P Stated Complaint: General decline since August;unable to care for self any more Source: Patient, Family - Personal History Current Tetanus Diphtheria and Acellular Pertussis (TDAP): Yes - Medical/Surgical History Hx Asthma: No Hx Chronic Respiratory Disease: No Hx Diabetes: No Hx Cardiac Disease: No Hx Renal Disease: Yes Hx Cirrhosis: No Hx Alcoholism: No Hx HIV/AIDS: No Hx Splenectomy or Spleen Trauma: No Other PMH: pmh- anxiety, depression, FUCH dz, migraines. psh- small intestine removed - Social History Smoking Status: Never smoked <Sandie Javed - Last Filed: 11/17/16 13:55> <LudyJailyn - Last Filed: 11/17/16 17:19> Time Seen by Provider: 11/17/16 09:53 HPI/ROS: CHIEF COMPLAINT: Generalized weakness diarrhea HISTORY OF PRESENT ILLNESS: This is an 81-year-old female presenting to the emergency department brought in by daughter. Daughter reports a generalized decline in health over the past couple of weeks. history of ischemic bowel requiring resection. On , 5 days ago, she vomited and had possibly dark or bloody, hard stools. Patient states that she his been feeling weak not back to her normal self for about a month now, she was initially diagnosed with influenza was hospitalized for that, went back to her nursing facility was starting to feel better but then has decreased p.o. intake generalized weakness diarrhea since . Patient states she has been drinking fluids, denies any fever or chills REVIEW OF SYSTEMS: Constitutional: No fever, no chills. Decreased p.o. intake. Generalized weakness Eyes: No discharge. ENT: No sore throat. Cardiovascular: No chest pain, no palpitations. Respiratory: No cough, no shortness of breath. Gastrointestinal: Abdominal pain, intermittent vomiting. Diarrhea with some blood Genitourinary: No hematuria. Musculoskeletal: No back pain. Skin: No rashes. Neurological: No headache. (Sandie Javed) - Physical Exam Exam: General Appearance: Alert, no distress. Eyes: Pupils equal and round no pallor or injection. ENT, Mouth: Mucous membranes dry Respiratory: There are no retractions, lungs are clear to auscultation. Cardiovascular: Regular rate and rhythm. Gastrointestinal: Abdomen is soft, nondistended, left lower quadrant pain on palpation no masses, bowel sounds hyperactive. Neurological: No focal deficits Skin: Warm and dry, bruising noted to left hip and buttock from a fall Musculoskeletal: Neck is supple nontender. Extremities: symmetrical, full range of motion. Psychiatric: Patient is oriented X 3, there is no agitation. (Sandie Javed) Constitutional: Initial Vital Signs Temperature (C) 36.4 C 11/17/16 09:42 Heart Rate 95 11/17/16 09:42 Respiratory Rate 18 11/17/16 09:42 Blood Pressure 94/70 L 11/17/16 09:42 O2 Sat (%) 94 11/17/16 09:42 O2 Delivery Mode Room Air Allergies/Adverse Reactions: prochlorperazine edisylate [From Compazine] Allergy (Severe, Verified 11/17/16 09:42) "LOST CONTROL OF NECK MUSCLES prochlorperazine maleate [From Compazine] Allergy (Severe, Verified 11/17/16 09: 42) "LOST CONTROL OF NECK MUSCLES Penicillins Allergy (Intermediate, Verified 11/17/16 09:42) Rash cocoa [chocolate] Allergy (Verified 11/17/16 09:42) divalproex sodium [From Depakote] Allergy (Verified 11/17/16 09:42) WHEAT SENSITIVITY Allergy (Uncoded 09/20/15 14:39) Home Medications: Medication Instructions Recorded Pantoprazole Sodium [Protonix 40mg 40 mg PO DAILYAC 07/09/14 (*)] Sumatriptan Succinate [Imitrex] 50 - 100 mg PO DAILY PRN 07/09/14 Zolpidem Tartrate [Ambien 5MG (*)] 5 mg PO HS 07/09/14 Herbals/Supplements -Info Only 1 ea PO DAILY 07/04/15 FLUoxetine HCL [Fluoxetine HCl] 40 mg PO DAILY 09/20/16 Multivitamins [Multivitamin (*)] 1 each PO DAILY 09/20/16 Topiramate [Topamax 25MG (*)] 25 mg PO BID 09/20/16 Medical Decision Making <Sandie Javed - Last Filed: 11/17/16 13:55> <Jailyn Boston - Last Filed: 11/17/16 17:19> - Diagnostics Imaging Results: Imaging Impressions Chest X-Ray 11/17/16 10:27 Impression: There is no acute abnormality, or substantial change from 10/17/2016 , or evidence of an infiltrate. Abdomen/Pelvis CT 11/17/16 10:55 Impression: 1. Mild constipation especially in the rectosigmoid region. 2. Sigmoid diverticulosis without diverticulitis. 3. No definite bowel obstruction although limited due to lack of intravenous and oral contrast. 4. Posttraumatic spleen. 5. Cholelithiasis without biliary ductal dilation. 6. Atrophic right kidney. No nephrolithiasis. 7. Atherosclerotic aorta without aneurysm. 8. Severe degenerative disk disease lower thoracic and lumbar spine resulting in at least moderate central canal stenosis at L4-L5. Recommendation: Consider additional imaging with intravenous and oral contrast when the patient's medical condition permits if there is continued clinical concern. Attention: This CT examination is specifically designed to evaluate patients who are clinically suspected of having acute obstructive uropathy. This examination does not use radiographic contrast, and as such, provides only a limited evaluation of the abdomen, pelvis and retroperitoneum. If there is further clinical suspicion for pathological conditions other than obstructive uropathy, a complete CT evaluation of the abdomen and pelvis utilizing intravenous, oral, and rectal contrast should be considered. Findings and recommendations discussed with Emergency Department nurse practitioner, Sandie Javed, at 1120 hours, 11/17/2016. Final report concurs with initial preliminary interpretation. Cosign: Dr. Geovanni Mosher. ED Course/Re-evaluation: Discussed the plan of care: Declared sepsis at this time, white blood count elevated at 48.84. Hypertensive afebrile. EKG, chest x-ray additional labs lactate and troponin added 1100: Discussed admit the patient with patient and daughter. The IV fluids for dehydration 1 L normal saline bolus. 1120: Chest x-ray Impression: There is no acute abnormality, or substantial change from 10/17/2016, or evidence of an infiltrate. CT abdominal pelvis without IV contrast Impression: 1. Mild constipation especially in the rectosigmoid region. 2. Sigmoid diverticulosis without diverticulitis. 3. No definite bowel obstruction although limited due to lack of intravenous and oral contrast. 4. Posttraumatic spleen. 5. Cholelithiasis without biliary ductal dilation. 6. Atrophic right kidney. No nephrolithiasis. 7. Atherosclerotic aorta without aneurysm. 8. Severe degenerative disk disease lower thoracic and lumbar spine resulting in at least moderate central canal stenosis at L4-L5. 1130: Patient admitted to Dr. Domínguez. Admitted for generalized weakness, leukocytosis, acute coronary syndrome (Sandie Javed) Differential Diagnosis: Other differential diagnosis considered but not limited to small bowel obstruction, renal failure, diverticulitis, urosepsis (Sandie Javed) Other Provider: I evaluated and participated in the management of the patient. I also evaluated the patient independently. My co-signature indicates that I have reviewed this chart and I agree with the findings and plan of care as documented. My personal H&P findings includes: 1030: Assessed patient in conjunction with ALLY Javed. The patient is an 81 y/o female, with a remote history of ischemic bowel requiring resection, who presents with a 5-month history of worsening weakness. In August, she became ill with the flu and suffered a fall. Since then she has felt like she is progressively declining. About two weeks ago she had diarrhea and was evaluated by her PCP, Dr. Shetty. It sounds like the patient has had intermittent diarrhea for many years. She has had some chest discomfort with her symptoms as well, but denies any chest pain currently. Dr. Shetty ordered a nuclear stress test for dyspnea sometime in the last two weeks. The patient was told it was slightly abnormal, but not concerning. On , 5 days ago, she vomited and had possibly dark or bloody, hard stools. She felt so weak that she was concerned about walking alone to the bathroom alone. She fell again yesterday due to weakness, was evaluated by EMS, and refused transport. She possibly had more dark stools today, though she is unable to confirm this with certainty. She does complain of mild left-sided abdominal pain as well. She denies fever. Her last colonoscopy was 3-4 years ago and she reports it was unremarkable. Daughter at bedside is involved in patient's care. Patient is currently living independently at [facility]. Exam findings: Pale appearing, no respiratory distress. Lungs are clear. Heart is regular. Patient is somewhat weak when sitting up in the bed. Patient has moderate LLQ tenderness and multiple bruises. Her BP is 88/39 and she is 89% room air while lying flat. She is not tachycardic or febrile. Her labs here show an extremely elevated WBC of 48.84, platelets low at 37, sodium low at 128, creatinine 1.5. Her last WBC on 10/01/16 was 8.83, platelets 118. Patient has a markedly elevated WBC. She reports abnormal bowel movements 4 days ago but no true diarrhea. She has not had a fever. She has not had a cough. She had influenza in August. Although she has a significantly elevated white blood cell count and a borderline low blood pressure, I do not believe the patient is septic. Patient is also noted to have a indeterminate troponin as well as guaiac-positive stools. I am concerned the patient may have an underlying malignancy, most likely acute leukemia. She also is in acute renal failure. Patient's course was discussed with the hospitalist service and she was admitted to step-down. Patient's daughter was made aware of my concerns regarding potential malignancy. (Jailyn Boston) - Data Points Laboratory Results: Laboratory Results 11/17/16 10:00 11/17/16 10:00 11/17/16 11/17/16 11/17/16 10:35 10:00 10:00 WBC RBC Hgb Hct MCV MCH MCHC RDW Plt Count MPV Neut % (Auto) Lymph % (Auto) [place] % (Auto) Eos % (Auto) Baso % (Auto) Nucleat RBC Rel Count Absolute Neuts (auto) Absolute Lymphs (auto) Absolute Monos (auto) Absolute Eos (auto) Absolute Basos (auto) Absolute Nucleated RBC Immature Gran % Seg Neutrophils % Lymphocytes % Monocytes % Blast Cells % Immature Gran # Absolute Seg Neuts Absolute Lymphocytes Absolute Monocytes Absolute Blast Cells Smudge Cells Platelet Estimate Polychromasia Oval Macrocytes Elliptocytes Smear Review By PT INR APTT Sodium Potassium Chloride Carbon Dioxide Anion Gap BUN Creatinine Estimated GFR Glucose Calcium Phosphorus 2.6 mg/dL mg/dL (2.5-4.5) Total Bilirubin Conjugated Bilirubin Unconjugated Bilirubin AST ALT Alkaline Phosphatase Troponin I Total Protein Albumin Lipase TSH 1.850 uIU/mL uIU/mL (0.465-4.680) Stool Occult Bld Scrn POSITIVE H (NEGATIVE) Leuk/Lym Final Diagnosis Pending 11/17/16 11/17/16 11/17/16 10:00 10:00 10:00 WBC RBC Hgb Hct MCV MCH MCHC RDW Plt Count MPV Neut % (Auto) Lymph % (Auto) [place] % (Auto) Eos % (Auto) Baso % (Auto) Nucleat RBC Rel Count Absolute Neuts (auto) Absolute Lymphs (auto) Absolute Monos (auto) Absolute Eos (auto) Absolute Basos (auto) Absolute Nucleated RBC Immature Gran % Seg Neutrophils % Lymphocytes % Monocytes % Blast Cells % Immature Gran # Absolute Seg Neuts Absolute Lymphocytes Absolute Monocytes Absolute Blast Cells Smudge Cells Platelet Estimate Polychromasia Oval Macrocytes Elliptocytes Smear Review By PT 13.7 SEC SEC (12.0-15.0) INR 1.06 (0.83-1.16) APTT 28.0 SEC SEC (23.0-38.0) Sodium 128 mEq/L L mEq/L (134-144) Potassium 4.4 mEq/L mEq/L (3.5-5.2) Chloride 98 mEq/L mEq/L (97-110) Carbon Dioxide 22 mEq/l mEq/l (22-31) Anion Gap 8 mEq/L mEq/L (8-16) BUN 34 mg/dL H mg/dL (7-23) Creatinine 1.5 mg/dL H mg/dL (0.6-1.0) Estimated GFR 33 Glucose 118 mg/dL H mg/dL (70-100) Calcium 8.6 mg/dL mg/dL (8.5-10.4) Phosphorus Total Bilirubin 0.7 mg/dL mg/dL 0.8 mg/dL mg/dL (0.1-1.4) (0.1-1.4) Conjugated Bilirubin 0.5 mg/dL mg/dL (0.0-0.5) Unconjugated Bilirubin 0.3 mg/dL mg/dL (0.0-1.1) AST 22 IU/L IU/L (14-46) ALT 27 IU/L IU/L (9-52) Alkaline Phosphatase 73 IU/L IU/L (38-126) Troponin I 0.090 ng/mL H ng/mL (0-0.034) Total Protein 6.2 g/dL L g/dL (6.3-8.2) Albumin 3.3 g/dL L g/dL (3.5-5.0) Lipase 32.0 IU/L IU/L (23-300) TSH Stool Occult Bld Scrn Leuk/Lym Final Diagnosis 11/17/16 10:00 WBC 48.84 10^3/uL H 10^3/uL (3.80-9.50) RBC 2.59 10^6/uL L 10^6/uL (4.18-5.33) Hgb 9.3 g/dL L g/dL (12.6-16.3) Hct 27.0 % L % (38.0-47.0) MCV 104.2 fL H fL (81.5-99.8) MCH 35.9 pg H pg (27.9-34.1) MCHC 34.4 g/dL g/dL (32.4-36.7) RDW 20.3 % H % (11.5-15.2) Plt Count 34 10^3/uL L 10^3/uL (150-400) MPV 8.7 fL fL (8.7-11.7) Neut % (Auto) Not Reported Lymph % (Auto) Not Reported [place] % (Auto) Not Reported Eos % (Auto) Not Reported Baso % (Auto) Not Reported Nucleat RBC Rel Count 0.7 % H % (0.0-0.2) Absolute Neuts (auto) Not Reported Absolute Lymphs (auto) Not Reported Absolute Monos (auto) Not Reported Absolute Eos (auto) Not Reported Absolute Basos (auto) Not Reported Absolute Nucleated RBC 0.35 10^3/uL H 10^3/uL (0-0.01) Immature Gran % Not Reported Seg Neutrophils % 8 % % Lymphocytes % 66 % % Monocytes % 3 % % Blast Cells % 23 % % Immature Gran # Not Reported Absolute Seg Neuts 3.91 10^/uL 10^/uL (1.70-6.50) Absolute Lymphocytes 32.23 10^3/uL H 10^3/uL (1.00-3.00) Absolute Monocytes 1.47 10^3/uL H 10^3/uL (0.30-0.80) Absolute Blast Cells 11.23 10^3/uL H 10^3/uL (0.00-0.00) Smudge Cells 1+ H Platelet Estimate DECREASED L (ADEQ) Polychromasia 1+ H Oval Macrocytes 1+ H Elliptocytes 1+ H Smear Review By Pauline ACOSTA MD PT INR APTT Sodium Potassium Chloride Carbon Dioxide Anion Gap BUN Creatinine Estimated GFR Glucose Calcium Phosphorus Total Bilirubin Conjugated Bilirubin Unconjugated Bilirubin AST ALT Alkaline Phosphatase Troponin I Total Protein Albumin Lipase TSH Stool Occult Bld Scrn Leuk/Lym Final Diagnosis Medications Given: Discontinued Medications Sodium Chloride (Ns) 2,100 mls @ 4,200 mls/hr 30 ml/kg infuse over 30 min ( 2100 ml) IV EDNOW ONE Stop: 11/17/16 11:13 Last Admin: 11/17/16 11:20 Dose: 2,100 mls Departure <Sandie Javed - Last Filed: 11/17/16 13:55> <Jailyn Boston - Last Filed: 11/17/16 17:19> - Departure Disposition: [facility] Inpatient Acute Clinical Impression: Generalized weakness, Elevated troponin Leukocytosis Qualifiers: Leukocytosis type: unspecified Qualified Code(s): D72.829 - Elevated white blood cell count, unspecified 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
[2016-11-17] MEDS ORDERED: NS 1,000 ML IV SCH (10:15)
[2016-11-17 10:18] LABS: ABSOLUTE NRBC COUNT 0.35 10^3/uL (0-0.01); FRAGMENT RBC FLAG 0 (0-99); HEMOGLOBIN 9.3 g/dL (12.6-16.3); LEFT SHIFT FLG 0 (0-99); LIPEMIA HEMOLYSIS FLAG 90 (0-99); MEAN CELL HEMOGLOBIN 35.9 pg (27.9-34.1); MEAN CELL HEMOGLOBIN CONCENTR. 34.4 g/dL (32.4-36.7); MEAN CELL VOLUME 104.2 fL (81.5-99.8); MEAN PLATELET VOLUME 8.7 fL (8.7-11.7); NRBC-AUTO% 0.7 % (0.0-0.2); PLATELET CLUMPS FLAG 0 (0-99); RED BLOOD CELL COUNT 2.59 10^6/uL (4.18-5.33)
[2016-11-17 10:19] LABS: ATYPICAL LYMPHOCYTE FLAG 110 (0-99); PLATELET COUNT 34 10^3/uL (150-400); RED CELL DISTRIBUTION WIDTH 20.3 % (11.5-15.2)
[2016-11-17 10:20] LABS: ADD DIFF? YES; ADD MORPH? NO; ADD SCAN? NO
[2016-11-17 10:25] LABS: ALANINE AMINOTRANSFERASE 27 IU/L (9-52); ALBUMIN 3.3 g/dL (3.5-5.0); ALKALINE PHOSPHATASE 73 IU/L (38-126); ANION GAP 8 mEq/L (8-16); ASPARTATE AMINOTRANSFERASE 22 IU/L (14-46); BILIRUBIN,TOTAL 0.8 mg/dL (0.1-1.4); BILIRUBIN-CONJUGATED 0.5 mg/dL (0.0-0.5); BILIRUBIN-UNCONJUGATED 0.3 mg/dL (0.0-1.1); CALCIUM 8.6 mg/dL (8.5-10.4); CARBON DIOXIDE 22 mEq/l (22-31); CHLORIDE 98 mEq/L (97-110); CREATININE 1.5 mg/dL (0.6-1.0); GLOMERULAR FILTRATION RATE 33; GLUCOSE 118 mg/dL (70-100); POTASSIUM 4.4 mEq/L (3.5-5.2); SODIUM 128 mEq/L (134-144); TOTAL PROTEIN 6.2 g/dL (6.3-8.2)
[2016-11-17 10:37] LABS: INR 1.06 (0.83-1.16); PROTIME(PATIENT) 13.7 SEC (12.0-15.0)
[2016-11-17] MEDS ORDERED: NS 2,100 ML IV ONE (10:44)
[2016-11-17 10:53] LABS: BILIRUBIN,TOTAL 0.7 mg/dL (0.1-1.4)
--- NOTE | 2016-11-17 11:13 | CPEKG ---
Heart Rate: 84 RR Interval: 714 P-R Interval: 152 QRSD Interval: 92 QT Interval: 376 QTC Interval: 445 P [place]: 42 QRS [place]: -23 T Wave [place]: 96 EKG Severity - ABNORMAL ECG - EKG Impression: SINUS RHYTHM EKG Impression: VENTRICULAR PREMATURE COMPLEX EKG Impression: BORDERLINE LEFT AXIS DEVIATION EKG Impression: NONSPECIFIC T ABNORMALITIES, LATERAL LEADS Electronically Signed By: Jailyn Boston 17-Nov-2016 15:26:45
[2016-11-17 11:34] LABS: SMUDGE CELLS 1+
[2016-11-17 11:36] LABS: PLATELET ESTIMATE DECREASED (ADEQ)
[2016-11-17 11:43] LABS: ELLIPTOCYTES 1+; MACROCYTES 1+; POLYCHROMASIA 1+
[2016-11-17 12:19] LABS: COLOR YELLOW; LEUKOCYTE ESTERASE,URINE 1+ (NEGATIVE); NITRITE,URINE NEGATIVE (NEGATIVE)
[2016-11-17 12:28] LABS: BACTERIA 4+ /hpf (NONE SEEN); MUCUS NONE SEEN /lpf (NONE-1+)
[2016-11-17] MEDS ORDERED: ONDANSETRON 4 MG/2 ML VIAL IVP PRN (13:21)
[2016-11-17] MEDS ORDERED: ONDANSETRON DISINTEGRATING 4 MG TAB PO PRN (13:21)
--- NOTE | 2016-11-17 14:23 | PDGENHP ---
History and Physical - Chief Complaint Acute weakness - History of Present Illness PCP: Dr. Gibbons HPI: 81 yo F p/w acute weakness characterized as generalized w/ assoc anorexia, loose bowel movements, vomiting x1, and difficulty ambulating with mechanical fall on the day prior to presentation. Onset of weakness was several weeks ago and duration has been persistent and worsening thereafter, becoming particularly notable over the past 5 days. The weakness is exacerbated by ambulation and the patient has become so unsteady on her feet that she has only and able to ambulate approximately 12 feet. Her status is somewhat alleviated by using a cane and she continues to live in independent living. She has not recently made any medication changes. She reports that her appetite is poor but she has continued to attempt to drink water. History Information - Allergies/Home Medication List Allergies/Adverse Reactions: prochlorperazine edisylate [From Compazine] Allergy (Severe, Verified 11/17/16 09:42) "LOST CONTROL OF NECK MUSCLES prochlorperazine maleate [From Compazine] Allergy (Severe, Verified 11/17/16 09: 42) "LOST CONTROL OF NECK MUSCLES Penicillins Allergy (Intermediate, Verified 11/17/16 09:42) Rash cocoa [chocolate] Allergy (Verified 11/17/16 09:42) divalproex sodium [From Depakote] Allergy (Verified 11/17/16 09:42) WHEAT SENSITIVITY Allergy (Uncoded 09/20/15 14:39) Home Medications: Pantoprazole Sodium [Protonix 40mg (*)] 40 mg PO DAILYAC 07/09/14 [Last Taken ] Sumatriptan Succinate [Imitrex] 50 - 100 mg PO DAILY PRN 07/09/14 [Last Taken Unknown] Zolpidem Tartrate [Ambien 5MG (*)] 5 mg PO HS 07/09/14 [Last Taken 11/16/16] Herbals/Supplements -Info Only 1 ea PO DAILY 07/04/15 [Last Taken Unknown] FLUoxetine HCL [Fluoxetine HCl] 40 mg PO DAILY 09/20/16 [Last Taken 11/17/16] Multivitamins [Multivitamin (*)] 1 each PO DAILY 09/20/16 [Last Taken Unknown] Topiramate [Topamax 25MG (*)] 25 mg PO BID 09/20/16 [Last Taken 11/17/16] I have personally reviewed and updated: family history, medical history, social history, surgical history - Past Medical History Additional medical history: Chronic migraine headaches. Anxiety/depression. Influenza a infection in August of 2016. Ischemic bowel. Thrombocytopenia with baseline platelet count around 60,000 - Surgical History Additional surgical history: Small-bowel resection - Family History Positive for: non-pertinent Additional family history: no recent sick family contacts - Social History Smoking Status: Never smoked Alcohol Use: None Drug Use: None Additional social history: Patient lives alone in an independent living facility , uses cane to ambulate. Daughter is involved in her care. Review of Systems ROS: 10pt was reviewed & negative except for what was stated in HPI & below Constitutional: Reports: weakness, other ( anorexia) Gastrointestinal: Reports: other ( bowel urgency) Physical Exam Temp Pulse Resp BP Pulse Ox 36.2 C 78 17 109/45 L 95 11/17/16 13:39 11/17/16 13:39 11/17/16 13:39 11/17/16 13:39 11/17/16 13:39 Constitutional: no apparent distress, not in pain, chronically ill appearing, cachectic, No uncomfortable Eyes: PERRL, anicteric sclera, EOMI Ears, Nose, Mouth, Throat: hearing normal, other ( tacky mucous membranes, right ear with significant cerumen in the external canal) Cardiovascular: systolic murmur ( 2/6 late systolic murmur at the right sternal border), No irregularly irregular, No tachycardia, No edema Respiratory: no respiratory distress, no rales or rhonchi, clear to auscultation Gastrointestinal: normoactive bowel sounds, soft, non-tender abdomen, no palpable masses, No distension Genitourinary: no bladder fullness, no bladder tenderness Skin: other ( scattered ecchymoses without any rashes or ulcerations) Neurologic: AAOx3, No sensation intact bilaterally, No weakness ( motor strength 5/5 bilateral lower extremities) Psychiatric: interacting appropriately, not anxious, not encephalopathic, thought process linear Lab Data & Imaging Review 11/17/16 10:00 11/17/16 10:00 WBC 48.84 10^3/uL (3.80-9.50) H 11/17/16 10:00 RBC 2.59 10^6/uL (4.18-5.33) L 11/17/16 10:00 Hgb 9.3 g/dL (12.6-16.3) L 11/17/16 10:00 Hct 27.0 % (38.0-47.0) L 11/17/16 10:00 MCV 104.2 fL (81.5-99.8) H 11/17/16 10:00 MCH 35.9 pg (27.9-34.1) H 11/17/16 10:00 MCHC 34.4 g/dL (32.4-36.7) 11/17/16 10:00 RDW 20.3 % (11.5-15.2) H 11/17/16 10:00 Plt Count 34 10^3/uL (150-400) L 11/17/16 10:00 MPV 8.7 fL (8.7-11.7) 11/17/16 10:00 Neut % (Auto) Not Reported 11/17/16 10:00 Lymph % (Auto) Not Reported 11/17/16 10:00 [place] % (Auto) Not Reported 11/17/16 10:00 Eos % (Auto) Not Reported 11/17/16 10:00 Baso % (Auto) Not Reported 11/17/16 10:00 Nucleat RBC Rel Count 0.7 % (0.0-0.2) H 11/17/16 10:00 Absolute Neuts (auto) Not Reported 11/17/16 10:00 Absolute Lymphs (auto) Not Reported 11/17/16 10:00 Absolute Monos (auto) Not Reported 11/17/16 10:00 Absolute Eos (auto) Not Reported 11/17/16 10:00 Absolute Basos (auto) Not Reported 11/17/16 10:00 Absolute Nucleated RBC 0.35 10^3/uL (0-0.01) H 11/17/16 10:00 Immature Gran % Not Reported 11/17/16 10:00 Seg Neutrophils % 8 % 11/17/16 10:00 Lymphocytes % 66 % 11/17/16 10:00 Monocytes % 3 % 11/17/16 10:00 Blast Cells % 23 % 11/17/16 10:00 Immature Gran # Not Reported 11/17/16 10:00 Absolute Seg Neuts 3.91 10^/uL (1.70-6.50) 11/17/16 10:00 Absolute Lymphocytes 32.23 10^3/uL (1.00-3.00) H 11/17/16 10:00 Absolute Monocytes 1.47 10^3/uL (0.30-0.80) H 11/17/16 10:00 Absolute Blast Cells 11.23 10^3/uL (0.00-0.00) H 11/17/16 10:00 Smudge Cells 1+ H 11/17/16 10:00 Platelet Estimate DECREASED (ADEQ) L 11/17/16 10:00 Polychromasia 1+ H 11/17/16 10:00 Oval Macrocytes 1+ H 11/17/16 10:00 Elliptocytes 1+ H 11/17/16 10:00 PT 13.7 SEC (12.0-15.0) 11/17/16 10:00 INR 1.06 (0.83-1.16) 11/17/16 10:00 APTT 28.0 SEC (23.0-38.0) 11/17/16 10:00 VBG Lactic Acid 0.9 mmol/L (0.7-2.1) 11/17/16 11:32 Sodium 128 mEq/L (134-144) L 11/17/16 10:00 Potassium 4.4 mEq/L (3.5-5.2) 11/17/16 10:00 Chloride 98 mEq/L (97-110) 11/17/16 10:00 Carbon Dioxide 22 mEq/l (22-31) 11/17/16 10:00 Anion Gap 8 mEq/L (8-16) 11/17/16 10:00 BUN 34 mg/dL (7-23) H 11/17/16 10:00 Creatinine 1.5 mg/dL (0.6-1.0) H 11/17/16 10:00 Estimated GFR 33 11/17/16 10:00 Glucose 118 mg/dL (70-100) H 11/17/16 10:00 Calcium 8.6 mg/dL (8.5-10.4) 11/17/16 10:00 Total Bilirubin 0.7 mg/dL (0.1-1.4) 11/17/16 10:00 Conjugated Bilirubin 0.5 mg/dL (0.0-0.5) 11/17/16 10:00 Unconjugated Bilirubin 0.3 mg/dL (0.0-1.1) 11/17/16 10:00 AST 22 IU/L (14-46) 11/17/16 10:00 ALT 27 IU/L (9-52) 11/17/16 10:00 Alkaline Phosphatase 73 IU/L (38-126) 11/17/16 10:00 Troponin I 0.090 ng/mL (0-0.034) H 11/17/16 10:00 Total Protein 6.2 g/dL (6.3-8.2) L 11/17/16 10:00 Albumin 3.3 g/dL (3.5-5.0) L 11/17/16 10:00 Lipase 32.0 IU/L (23-300) 11/17/16 10:00 Urine Color YELLOW 11/17/16 12:07 Urine Appearance MODERATELY TURBID 11/17/16 12:07 Urine pH 5.0 (5.0-7.5) 11/17/16 12:07 Ur Specific [place] 1.006 (1.002-1.030) 11/17/16 12:07 Urine Protein NEGATIVE (NEGATIVE) 11/17/16 12:07 Urine Ketones NEGATIVE (NEGATIVE) 11/17/16 12:07 Urine Blood 3+ (NEGATIVE) H 11/17/16 12:07 Urine Nitrate NEGATIVE (NEGATIVE) 11/17/16 12:07 Urine Bilirubin NEGATIVE (NEGATIVE) 11/17/16 12:07 Urine Urobilinogen NEGATIVE EU (0.2-1.0) 11/17/16 12:07 Ur Leukocyte Esterase 1+ (NEGATIVE) H 11/17/16 12:07 Urine RBC 1-3 /hpf (0-3) 11/17/16 12:07 Urine WBC 5-10 /hpf (0-3) H 11/17/16 12:07 Ur Epithelial Cells TRACE /lpf (NONE-1+) 11/17/16 12:07 Urine Bacteria 4+ /hpf (NONE SEEN) H 11/17/16 12:07 Urine Mucus NONE SEEN /lpf (NONE-1+) 11/17/16 12:07 Urine Glucose NEGATIVE (NEGATIVE) 11/17/16 12:07 Stool Occult Bld Scrn POSITIVE (NEGATIVE) H 11/17/16 10:35 Patient ABO/Rh B POSITIVE 11/17/16 11:32 Visualized and Interpreted Chest x-ray results: Yes Chest X-Ray results: no infiltrate, other ( ectatic aorta) Visualized and Interpreted EKG results: Yes EKG Interpretation: Positive for: other ( normal sinus rhythm) Assessment & Plan Assessment: 81-year-old female presenting with acute generalized weakness in the setting of suspected acute leukemia Plan: 1. 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 Acute, new problem this provider, further workup indicated. This may be a significant contributor to patient's generalized weakness and anorexia - discussed with Dr. Jailyn Boston, I have instructed her that I will consult with Oncology - discussed with Dr. Willingham, he will consult in this patient's care this afternoon - manual smear reportedly performed by Dr. Mead, suggests acute leukemia - continue to monitor CBC 2. Acute kidney injury. Most likely secondary to hypovolemia, most recent serum creatinine level as an outpatient is unremarkable - give IV normal saline, monitor urine output, follow up creatinine BUN and lytes tomorrow 3. Hyponatremia. Acute, most likely secondary to hypovolemia, continue normal saline and repeat serum sodium level in a.m. next 4. Loose bowel movements. Acute, new problem this provider, further workup indicated. Patient reports bowel urgency but denies overt diarrhea today - in the setting of significantly elevated white blood cell count, get C diff PCR if patient is experiencing loose bowel movements 5. Anemia. Chronic, although patient is fecal occult blood positive in the setting of thrombocytopenia, her most recent outside records including 2016 iron studies demonstrate a high iron level and high iron saturation, does not appear to be iron deficient - most likely secondary to underlying myeloproliferative disorder 6. Generalized weakness. Acute, reviewed outside records including June 2015 nuclear medicine stress test demonstrating normal ejection fraction, normal nuc - get PT and case management consultations Diet. Regular Prophylaxis. High risk patient, SCDs, pharm contraindicated given thrombocytopenia Code. Do not resuscitate per patient, her daughter is her MPOA Disposition. Anticipated discharge uncertain this time, anticipated length stay is greater than 2 midnights for reasonable medical necessity including suspected acute leukemia with high risk comorbid acute kidney injury
[2016-11-17] MEDS: NS 1,000 ML IV SCH ×2 (14:47→21:39)
[2016-11-17] MEDS: ALLOPURINOL 300 MG TAB PO SCH (18:09)
[2016-11-17 18:46] LABS: LACTATE DEHYDROGENASE 749 IU/L (313-618); URIC ACID 10.3 mg/dL (2.5-6.8)
[2016-11-17] MEDS ORDERED: ZOLPIDEM TARTRATE 5 MG TAB PO SCH (21:00)
--- NOTE | 2016-11-17 21:03 | GCON ---
[f rep st] CONSULTATION DATE OF CONSULTATION: 11/17/2016 HISTORY OF PRESENT ILLNESS: The patient is a very pleasant 81-year-old female, who was admitted wit h a high white count, anemia, and thrombocytopenia. To review, the patient has not been feeling wel l recently; she has had some anorexia, occasional loose bowel movements, and has had occasional fall ing, including one the day prior to admission. She may have lost about 10 or 15 pounds over the las t couple months. She feels somewhat short of breath and unsteady. She presented to the Emergency R o[facility], where a CBC showed a white count of 48,000 with about 23% blasts. Hemoglobin was 9.3, hematocr it 27, platelets 34,000. Of note, she was admitted to [facility] in August 2016. Pl atelets at that time were mildly low, possibly felt to be related to her influenza; they were in the 60,000 to 90,000 range. Her white cell count was normal, in the 8000 or so range. She has been ad mitted for further evaluation. She has also noted some easy bruisability. She denies any fevers or cough. PAST MEDICAL HISTORY: Significant for chronic migraine headaches, some anxiety and depression, hist ory of obesity, history of ischemic bowel. She is status post small bowel resection. She is in ind ependent living. Accompanied by her daughter. She is a nonsmoker. REVIEW OF SYSTEMS: Negative for 10 systems except as discussed in the HPI. PHYSICAL EXAMINATION: CONSTITUTIONAL: She is a somewhat pale-appearing female. VITAL SIGNS: Bloo d pressure is 90/41, O2 sat 90% on room air. HEENT: She is not icteric. Pharynx is unremarkable. LYMPHATICS: I detect no cervical, supraclavicular, or axillary adenopathy. LUNGS: Clear to auscu ltation and percussion. CARDIAC: Normal S1, S2, without murmurs, clicks or added sounds. ABDOMEN: Benign without organomegaly. There is a midline scar. She does have a bit of tenderness in her r ight upper quadrant. Extremities show ecchymosis without obvious edema. ADDITIONAL LABORATORY DATA: Unremarkable INR of 1.06. Sodium is 128, creatinine is 1.5 (which is f airly chronic). Serum ferritin 282, serum iron 304, TIBC 302. Liver function tests are unremarkabl e. B12, as of last summer, was normal at 487. Fairly recent TSH is also unremarkable. Urinalysis shows 3+ heme. Stool for occult blood is positive. IMPRESSION: I think there is concern that this patient has an acute leukemia. I have reviewed her peripheral smear and discussed with Pathology. Other issues include acute kidney injury, hyponatrem ia, heme-positive stool, and general debilitation. I have discussed this at length with the patient and her daughter. Flow cytometry is pending on her peripheral blood. I am going to check a uric a barbra and LDH. We will start allopurinol, and I will perform a bone marrow biopsy tomorrow. I do not think she will be a candidate for any type of aggressive therapy. Vidaza might be a consideration, although we would need to discuss this issue carefully. /[id number]/MODL
[2016-11-17] MEDS: TOPIRAMATE 25 MG TAB PO SCH (21:13)
[2016-11-17] MEDS ORDERED: ZOLPIDEM TARTRATE 5 MG TAB PO ONE (21:44)
[2016-11-17] MEDS: ACETAMINOPHEN 325 MG TAB PO PRN (23:30)
[2016-11-18] MEDS: NS 1,000 ML IV SCH ×3 (04:10→21:52)
[2016-11-18] MEDS: PANTOPRAZOLE SODIUM 40 MG TAB PO SCH (06:09)
[2016-11-18 06:12] LABS: ABSOLUTE NRBC COUNT 0.35 10^3/uL (0-0.01); FRAGMENT RBC FLAG 0 (0-99); HEMATOCRIT 22.9 % (38.0-47.0); HEMOGLOBIN 7.5 g/dL (12.6-16.3); LEFT SHIFT FLG 0 (0-99); LIPEMIA HEMOLYSIS FLAG 80 (0-99); MEAN CELL HEMOGLOBIN 35.7 pg (27.9-34.1); MEAN CELL HEMOGLOBIN CONCENTR. 32.8 g/dL (32.4-36.7); MEAN PLATELET VOLUME 11.6 fL (8.7-11.7); NRBC-AUTO% 0.6 % (0.0-0.2); PLATELET CLUMPS FLAG 0 (0-99)
[2016-11-18 06:18] LABS: ANION GAP 6 mEq/L (8-16); CALCIUM 7.5 mg/dL (8.5-10.4); CARBON DIOXIDE 19 mEq/l (22-31); CHLORIDE 110 mEq/L (97-110); CREATININE 1.1 mg/dL (0.6-1.0); GLOMERULAR FILTRATION RATE 47; GLUCOSE 88 mg/dL (70-100); POTASSIUM 4.6 mEq/L (3.5-5.2); SODIUM 135 mEq/L (134-144)
[2016-11-18 06:20] LABS: RED CELL DISTRIBUTION WIDTH 21.2 % (11.5-15.2)
[2016-11-18 06:22] LABS: PLATELET COUNT 31 10^3/uL (150-400)
[2016-11-18 06:23] LABS: ADD DIFF? YES; ADD MORPH? NO; ATYPICAL LYMPHOCYTE FLAG 110 (0-99)
[2016-11-18 06:25] LABS: ADD SCAN? NO
[2016-11-18 07:46] LABS: MACROCYTES 2+; MICROCYTES 2+; PLATELET ESTIMATE DECREASED (ADEQ); POLYCHROMASIA 1+; SCHISTOCYTES 1+
[2016-11-18] MEDS ORDERED: LIDOCAINE 2% 5 ML SDV ID ONE (08:30)
[2016-11-18] MEDS: ALLOPURINOL 300 MG TAB PO SCH (08:49)
[2016-11-18] MEDS: FLUoxetine 20 MG CAP PO SCH (08:49)
[2016-11-18] MEDS: TOPIRAMATE 25 MG TAB PO SCH ×2 (08:49→21:21)
[2016-11-18] MEDS: ACETAMINOPHEN 325 MG TAB PO PRN ×3 (08:49→21:22)
[2016-11-18] MEDS: HYDROXYUREA 500 MG CAP PO SCH ×3 (08:50→21:21)
[2016-11-18] MEDS: MULTIVITAMINS 1 EACH TAB PO SCH (08:50)
[2016-11-18] MEDS ORDERED: Herbals/Supplements -Info Only PO SCH (09:00)
--- NOTE | 2016-11-18 10:49 | SOAPPROG ---
SOAP Progress Note Assessment/Plan: Assessment: 1. 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 Anemia, thrombocytopenia 3. elevated uric acid Plan:Start Hydrea, transfuse 1 unit prbc today, bone marrow biopsy performed. discussed at length with pt and daughter 11/18/16 10:46 Subjective: Feels ok, tired Objective: Vital Signs Temp Pulse Resp BP Pulse Ox 97.4 F 89 22 H 96/45 L 93 11/18/16 10:45 11/18/16 10:45 11/18/16 10:45 11/18/16 10:45 11/18/16 10:45 Laboratory Results 11/18/16 05:55 11/18/16 05:55 11/17/16 11/18/16 11/19/16 05:59 05:59 05:59 Intake Total 4225 150 Output Total 850 Balance 3375 150 PT 13.7 SEC (12.0-15.0) 11/17/16 10:00 INR 1.06 (0.83-1.16) 11/17/16 10:00 Physical Exam - Physical Exam General Appearance: other (pale) Respiratory: lungs clear, normal breath sounds Cardiac/Chest: regular rate, rhythm Abdomen: normal bowel sounds, non-tender ICD10 Worksheet Patient Problems: Problems Problem Status Onset Acute leukemia Acute Elevated troponin Acute Gastrointestinal hemorrhage Acute Generalized weakness Acute Leukocytosis Acute Dehydration Acute Diarrhea Acute Fall at home Acute Syncope Acute
--- NOTE | 2016-11-18 11:45 | GPN ---
[f rep st] PROCEDURE NOTE PROCEDURE: A bone marrow biopsy and aspirate. Patient was placed in the left lateral decubitus position. The right iliac crest was prepped and dr aped in the usual fashion, and anesthetized with 10 mL of 2% xylocaine. A core biopsy and aspirate were taken, patient tolerated well. /[id number]/MODL
--- NOTE | 2016-11-18 14:15 | HOSPPROG ---
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 cxr w no airspace disease (interp by me) Objective: Vital Signs Temp Pulse Resp BP Pulse Ox 36.3 C 83 14 96/48 L 93 11/18/16 11:32 11/18/16 11:32 11/18/16 11:32 11/18/16 11:32 11/18/16 11:32 Laboratory Results 11/18/16 05:55 11/18/16 05:55 11/17/16 11/18/16 11/19/16 05:59 05:59 05:59 Intake Total 4225 1488 Output Total 850 1000 Balance 3375 488 PT 13.7 SEC (12.0-15.0) 11/17/16 10:00 INR 1.06 (0.83-1.16) 11/17/16 10:00 - Physical Exam Constitutional: no apparent distress, appears nourished Eyes: PERRL, anicteric sclera Ears, Nose, Mouth, Throat: moist mucous membranes, hearing normal Cardiovascular: regular rate and rhythym, no murmur, rub, or gallop, systolic murmur Respiratory: no respiratory distress, no rales or rhonchi Gastrointestinal: normoactive bowel sounds, soft, non-tender abdomen Genitourinary: no bladder fullness, No cotto in urethra Skin: warm, normal color Musculoskeletal: full muscle strength, pain with ROM Neurologic: AAOx3, sensation intact bilaterally Psychiatric: interacting appropriately, not anxious Lymph, Heme, Immunologic: no cervical LAD ICD10 Worksheet Patient Problems: Problems Problem Status Onset Acute leukemia Acute Elevated troponin Acute Gastrointestinal hemorrhage Acute Generalized weakness Acute Leukocytosis Acute Dehydration Acute Diarrhea Acute Fall at home Acute Syncope Acute
[2016-11-18] MEDS: ZOLPIDEM TARTRATE 5 MG TAB PO SCH (21:21)
[2016-11-19] MEDS: NS 1,000 ML IV SCH ×2 (04:48→11:46)
[2016-11-19] MEDS: ACETAMINOPHEN 325 MG TAB PO PRN ×3 (04:56→19:37)
[2016-11-19 04:59] LABS: ABSOLUTE NRBC COUNT 0.52 10^3/uL (0-0.01); FRAGMENT RBC FLAG 0 (0-99); HEMATOCRIT 30.6 % (38.0-47.0); HEMOGLOBIN 9.9 g/dL (12.6-16.3); LEFT SHIFT FLG 0 (0-99); LIPEMIA HEMOLYSIS FLAG 80 (0-99); MEAN CELL HEMOGLOBIN 34.3 pg (27.9-34.1); MEAN CELL HEMOGLOBIN CONCENTR. 32.4 g/dL (32.4-36.7); MEAN CELL VOLUME 105.9 fL (81.5-99.8); MEAN PLATELET VOLUME 11.8 fL (8.7-11.7); NRBC-AUTO% 0.6 % (0.0-0.2); PLATELET CLUMPS FLAG 50 (0-99); RED BLOOD CELL COUNT 2.89 10^6/uL (4.18-5.33)
[2016-11-19 05:03] LABS: ADD DIFF? YES; ADD MORPH? NO; ATYPICAL LYMPHOCYTE FLAG 110 (0-99); PLATELET COUNT 38 10^3/uL (150-400); RED CELL DISTRIBUTION WIDTH 22.1 % (11.5-15.2)
[2016-11-19 05:05] LABS: ADD SCAN? NO
[2016-11-19 06:06] LABS: ANION GAP 9 mEq/L (8-16); CALCIUM 7.5 mg/dL (8.5-10.4); CARBON DIOXIDE 14 mEq/l (22-31); CHLORIDE 113 mEq/L (97-110); GLOMERULAR FILTRATION RATE 53; GLUCOSE 98 mg/dL (70-100); POTASSIUM 4.9 mEq/L (3.5-5.2); SODIUM 136 mEq/L (134-144)
[2016-11-19] MEDS: PANTOPRAZOLE SODIUM 40 MG TAB PO SCH (06:09)
[2016-11-19 06:38] LABS: MACROCYTES 2+; MICROCYTES 2+; PLATELET ESTIMATE DECREASED (ADEQ); POLYCHROMASIA 1+
[2016-11-19 06:39] LABS: SCHISTOCYTES 1+
[2016-11-19] MEDS: HYDROXYUREA 500 MG CAP PO SCH ×3 (08:44→21:34)
[2016-11-19] MEDS: ALLOPURINOL 300 MG TAB PO SCH (08:44)
[2016-11-19] MEDS: FLUoxetine 20 MG CAP PO SCH (08:44)
[2016-11-19] MEDS: TOPIRAMATE 25 MG TAB PO SCH ×2 (08:44→21:34)
[2016-11-19] MEDS: MULTIVITAMINS 1 EACH TAB PO SCH (08:44)
--- NOTE | 2016-11-19 10:46 | SOAPPROG ---
SOAP Progress Note Assessment/Plan: Assessment: 1. suspected AML, wbc rising today despite hydrea 2. Anemia, thrombocytopenia 3. elevated uric acid Plan:Continue Hydrea,await marrow and flow,discussed at length with pt and daughter that I think this is AML, prognosis is quite poor, life expectancy is measured in weeks to months, will have social security benefits interviewer see 11/18/16 10:46 11/19/16 10:43 Subjective: without pain, tired Objective: Vital Signs Temp Pulse Resp BP Pulse Ox 97.6 F 93 18 151/66 H 100 11/19/16 07:44 11/19/16 07:44 11/19/16 07:44 11/19/16 07:44 11/19/16 07:44 Laboratory Results 11/19/16 04:48 11/19/16 04:48 11/18/16 11/19/16 11/20/16 05:59 05:59 05:59 Intake Total 4225 5788 Output Total 850 1750 Balance 3375 4038 PT 13.7 SEC (12.0-15.0) 11/17/16 10:00 INR 1.06 (0.83-1.16) 11/17/16 10:00 Physical Exam - Physical Exam General Appearance: alert Respiratory: normal breath sounds Cardiac/Chest: regular rate, rhythm Abdomen: normal bowel sounds, non-tender ICD10 Worksheet Patient Problems: Problems Problem Status Onset Acute leukemia Acute Elevated troponin Acute Gastrointestinal hemorrhage Acute Generalized weakness Acute Leukocytosis Acute Dehydration Acute Diarrhea Acute Fall at home Acute Syncope Acute
--- NOTE | 2016-11-19 12:52 | HOSPPROG ---
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 case d/w dr whitaker. seeing red spots upon standing Objective: Vital Signs Temp Pulse Resp BP Pulse Ox 36.4 C 93 18 151/66 H 100 11/19/16 07:44 11/19/16 07:44 11/19/16 07:44 11/19/16 07:44 11/19/16 07:44 Laboratory Results 11/19/16 04:48 11/19/16 04:48 11/18/16 11/19/16 11/20/16 05:59 05:59 05:59 Intake Total 4225 5788 Output Total 850 1750 Balance 3375 4038 PT 13.7 SEC (12.0-15.0) 11/17/16 10:00 INR 1.06 (0.83-1.16) 11/17/16 10:00 - Physical Exam Constitutional: no apparent distress Eyes: PERRL, anicteric sclera Ears, Nose, Mouth, Throat: moist mucous membranes, hearing normal Cardiovascular: regular rate and rhythym, no murmur, rub, or gallop Respiratory: no respiratory distress, no rales or rhonchi Gastrointestinal: normoactive bowel sounds, soft, non-tender abdomen Genitourinary: no bladder fullness, No cotto in urethra Skin: warm, normal color Musculoskeletal: full muscle strength, no muscle tenderness Neurologic: AAOx3, sensation intact bilaterally Psychiatric: interacting appropriately ICD10 Worksheet Patient Problems: Problems Problem Status Onset Acute leukemia Acute Elevated troponin Acute Gastrointestinal hemorrhage Acute Generalized weakness Acute Leukocytosis Acute Dehydration Acute Diarrhea Acute Fall at home Acute Syncope Acute
[2016-11-19 14:43] LABS: FINAL DIAGNOSIS See Comments; MICROSCOPIC DESCRIPTION See Comments; SPECIAL STUDIES See Comments
[2016-11-19] MEDS: BIOTENE DRY MOUTH MOUTHWASH 237 ML BTL MM SCH ×3 (17:39→21:35)
[2016-11-19] MEDS: ZOLPIDEM TARTRATE 5 MG TAB PO SCH (21:34)
[2016-11-20] MEDS: BIOTENE DRY MOUTH MOUTHWASH 237 ML BTL MM SCH ×6 (02:23→20:58)
[2016-11-20] MEDS: PANTOPRAZOLE SODIUM 40 MG TAB PO SCH (05:33)
[2016-11-20] MEDS: ACETAMINOPHEN 325 MG TAB PO PRN ×2 (05:33→16:57)
[2016-11-20 06:14] LABS: ABSOLUTE NRBC COUNT 0.32 10^3/uL (0-0.01); ATYPICAL LYMPHOCYTE FLAG 0 (0-99); FRAGMENT RBC FLAG 0 (0-99); HEMATOCRIT 27.7 % (38.0-47.0); HEMOGLOBIN 9.2 g/dL (12.6-16.3); LEFT SHIFT FLG 0 (0-99); LIPEMIA HEMOLYSIS FLAG 80 (0-99); MEAN CELL HEMOGLOBIN 34.6 pg (27.9-34.1); MEAN CELL HEMOGLOBIN CONCENTR. 33.2 g/dL (32.4-36.7); MEAN CELL VOLUME 104.1 fL (81.5-99.8); MEAN PLATELET VOLUME 9.8 fL (8.7-11.7); NRBC-AUTO% 0.4 % (0.0-0.2); PLATELET CLUMPS FLAG 40 (0-99); RED BLOOD CELL COUNT 2.66 10^6/uL (4.18-5.33)
[2016-11-20 06:16] LABS: ADD DIFF? YES; PLATELET COUNT 36 10^3/uL (150-400); RED CELL DISTRIBUTION WIDTH 22.4 % (11.5-15.2)
[2016-11-20 06:17] LABS: ADD MORPH? NO
[2016-11-20 06:36] LABS: ANION GAP 8 mEq/L (8-16); CALCIUM 7.6 mg/dL (8.5-10.4); CARBON DIOXIDE 16 mEq/l (22-31); CHLORIDE 110 mEq/L (97-110); GLOMERULAR FILTRATION RATE 53; GLUCOSE 94 mg/dL (70-100); POTASSIUM 4.5 mEq/L (3.5-5.2); SODIUM 134 mEq/L (134-144)
[2016-11-20 06:48] LABS: ADD SCAN? NO
[2016-11-20 06:51] LABS: PLATELET ESTIMATE DECREASED (ADEQ)
[2016-11-20] MEDS: SUMAtriptan 50 MG TAB PO PRN (08:02)
[2016-11-20] MEDS: ALLOPURINOL 300 MG TAB PO SCH (08:02)
[2016-11-20] MEDS: HYDROXYUREA 500 MG CAP PO SCH ×3 (08:02→20:57)
[2016-11-20] MEDS: MULTIVITAMINS 1 EACH TAB PO SCH (08:02)
[2016-11-20] MEDS: TOPIRAMATE 25 MG TAB PO SCH ×2 (08:02→20:58)
[2016-11-20] MEDS: FLUoxetine 20 MG CAP PO SCH (08:02)
--- NOTE | 2016-11-20 11:08 | WOCRNPDOC ---
REEMA Advanced Assessment Note - Skin Integrity Problem, Advanced Assess Right Distal Sacrum Dressing Type: [employer] Life Integumentary Issue Intervention: Visualized Under Dressing Site Measurement - Head-to-Toe Length X Width X Depth (cm): 6.5x5x0 Skin Integrity Problem Comment: There is a non blanching purple red area with a distinct border that is painful only to palpation. Patient does not have any pain when sitting or lying in bed. Patient had a mechanical fall at home on thursday onto this area, although she reports it being more of a "sliding down". Wound care is unable to determine etiology of this wound at this time. It may be a pressure injury: Deep Tissue Injury, or it may be a contusion from her fall. Wound care will round again on Friday 11/24 to see wound's progress and evolution which will help clarify. Reported to Constance METCALF. Wound will be treated as a pressure injury until such time as that can be ruled out. Discussed findings with both patient and her daughter. All questions answered.
--- NOTE | 2016-11-20 12:52 | SOAPPROG ---
SOAP Progress Note Assessment/Plan: Assessment: 1. 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 Anemia, thrombocytopenia 3. elevated uric acid Plan:Increase Hydrea,options are clinical trial, vidaza, or palliative care with or without transfusion support, discussed in detail with pt and family, they may be seen at [facility] next week, they are exploring options re placement. duration 40 minutes 11/18/16 10:46 11/19/16 10:43 11/20/16 12:49 Subjective: Trouble sleeping Objective: Vital Signs Temp Pulse Resp BP Pulse Ox 98.2 F 85 18 140/67 H 96 11/20/16 11:21 11/20/16 11:21 11/20/16 11:21 11/20/16 11:21 11/20/16 11:21 Laboratory Results 11/20/16 05:10 11/20/16 05:10 11/19/16 11/20/16 11/21/16 05:59 05:59 05:59 Intake Total 5788 1864 Output Total 1750 375 750 Balance 4038 1489 -750 PT 13.7 SEC (12.0-15.0) 11/17/16 10:00 INR 1.06 (0.83-1.16) 11/17/16 10:00 ICD10 Worksheet Patient Problems: Problems Problem Status Onset Fall at home Acute Syncope Acute Dehydration Acute Diarrhea Acute Generalized weakness Acute Leukocytosis Acute Elevated troponin Acute Acute leukemia Acute Gastrointestinal hemorrhage Acute
--- NOTE | 2016-11-20 14:20 | HOSPPROG ---
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 onc: peripheral blasts w thrombocytopenia and anemia = almost certain AML bm bx today hydroxyurea started "red spots" uncertain etiology and significance no visual complaints now anemia: s/p packed cells thrombocytopenia: mild contraindication to pharm VTE proph indet trop: per pt and daughter, had recent negative nuc stress test as outpt no chest sx code: dnr dispo: inpatient Subjective: blastst rising despite hydroxyurea Objective: Vital Signs Temp Pulse Resp BP Pulse Ox 36.8 C 85 18 140/67 H 96 11/20/16 11:21 11/20/16 11:21 11/20/16 11:21 11/20/16 11:21 11/20/16 11:21 Laboratory Results 11/20/16 05:10 11/20/16 05:10 11/19/16 11/20/16 11/21/16 05:59 05:59 05:59 Intake Total 5788 1864 Output Total 1750 375 750 Balance 4038 1489 -750 PT 13.7 SEC (12.0-15.0) 11/17/16 10:00 INR 1.06 (0.83-1.16) 11/17/16 10:00 - Physical Exam Constitutional: no apparent distress, appears nourished Eyes: PERRL, anicteric sclera Ears, Nose, Mouth, Throat: moist mucous membranes, hearing normal Cardiovascular: regular rate and rhythym, no murmur, rub, or gallop Respiratory: no respiratory distress, no rales or rhonchi Gastrointestinal: normoactive bowel sounds, soft, non-tender abdomen Genitourinary: No cotto in urethra Skin: warm, normal color Musculoskeletal: full muscle strength, no muscle tenderness Neurologic: AAOx3 ICD10 Worksheet Patient Problems: Problems Problem Status Onset Acute leukemia Acute Elevated troponin Acute Gastrointestinal hemorrhage Acute Generalized weakness Acute Leukocytosis Acute Dehydration Acute Diarrhea Acute Fall at home Acute Syncope Acute
[2016-11-20 16:48] LABS: FINAL DIAGNOSIS See Comments; MICROSCOPIC DESCRIPTION See Comments; SPECIAL STUDIES See Comments
[2016-11-20] MEDS: ZOLPIDEM TARTRATE 5 MG TAB PO SCH (20:58)
[2016-11-21] MEDS: ACETAMINOPHEN 325 MG TAB PO PRN ×2 (00:50→04:40)
[2016-11-21] MEDS: BIOTENE DRY MOUTH MOUTHWASH 237 ML BTL MM SCH ×6 (02:10→20:53)
[2016-11-21 04:39] LABS: ABSOLUTE NRBC COUNT 0.31 10^3/uL (0-0.01); ATYPICAL LYMPHOCYTE FLAG 0 (0-99); FRAGMENT RBC FLAG 0 (0-99); HEMOGLOBIN 9.1 g/dL (12.6-16.3); LEFT SHIFT FLG 0 (0-99); LIPEMIA HEMOLYSIS FLAG 80 (0-99); MEAN CELL HEMOGLOBIN 34.3 pg (27.9-34.1); MEAN CELL HEMOGLOBIN CONCENTR. 33.7 g/dL (32.4-36.7); MEAN CELL VOLUME 101.9 fL (81.5-99.8); MEAN PLATELET VOLUME 9.4 fL (8.7-11.7); NRBC-AUTO% 0.5 % (0.0-0.2); PLATELET CLUMPS FLAG 10 (0-99); RED BLOOD CELL COUNT 2.65 10^6/uL (4.18-5.33)
[2016-11-21 04:51] LABS: PLATELET COUNT 33 10^3/uL (150-400); RED CELL DISTRIBUTION WIDTH 21.4 % (11.5-15.2)
[2016-11-21 04:52] LABS: ADD DIFF? YES; ADD MORPH? NO
[2016-11-21 04:53] LABS: ADD SCAN? NO
[2016-11-21 05:05] LABS: ANION GAP 7 mEq/L (8-16); CALCIUM 8.1 mg/dL (8.5-10.4); CARBON DIOXIDE 17 mEq/l (22-31); CHLORIDE 109 mEq/L (97-110); GLOMERULAR FILTRATION RATE 53; GLUCOSE 109 mg/dL (70-100); POTASSIUM 4.3 mEq/L (3.5-5.2); SODIUM 133 mEq/L (134-144)
[2016-11-21 06:13] LABS: MACROCYTES 1+
[2016-11-21 06:14] LABS: ACANTHOCYTES 1+; PLATELET ESTIMATE DECREASED (ADEQ)
[2016-11-21 06:15] LABS: SMUDGE CELLS 1+
[2016-11-21] MEDS: PANTOPRAZOLE SODIUM 40 MG TAB PO SCH (09:37)
[2016-11-21] MEDS: SUMAtriptan 50 MG TAB PO PRN (09:37)
[2016-11-21] MEDS: MULTIVITAMINS 1 EACH TAB PO SCH (09:37)
[2016-11-21] MEDS: HYDROXYUREA 500 MG CAP PO SCH ×3 (09:37→20:48)
[2016-11-21] MEDS: TOPIRAMATE 25 MG TAB PO SCH ×2 (09:37→20:49)
[2016-11-21] MEDS: FLUoxetine 20 MG CAP PO SCH (09:37)
[2016-11-21] MEDS: ALLOPURINOL 300 MG TAB PO SCH (09:46)
--- NOTE | 2016-11-21 13:06 | SOAPPROG ---
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 Anemia, thrombocytopenia 3. elevated uric acid 4. fatigue Plan:Options are clinical trial, vidaza, or palliative care with or without transfusion support, discussed in detail with pt and family, they may be seen at [facility] next week, they are exploring options re placement. duration 40 minutes. continue hydrea at current dose. Fatigue is probably related to underlying disease process 11/18/16 10:46 11/19/16 10:43 11/20/16 12:49 11/21/16 13:03 Subjective: Tired, no pain Objective: Vital Signs Temp Pulse Resp BP Pulse Ox 97 F 98 16 140/95 H 93 11/21/16 07:31 11/21/16 07:31 11/21/16 07:31 11/21/16 07:31 11/21/16 07:31 Laboratory Results 11/21/16 04:11 11/21/16 04:11 11/20/16 11/21/16 11/22/16 05:59 05:59 05:59 Intake Total 1864 1100 Output Total 375 1600 Balance 1489 -500 PT 13.7 SEC (12.0-15.0) 11/17/16 10:00 INR 1.06 (0.83-1.16) 11/17/16 10:00 Physical Exam - Physical Exam General Appearance: no apparent distress Respiratory: lungs clear, normal breath sounds Cardiac/Chest: regular rate, rhythm Abdomen: normal bowel sounds, non-tender ICD10 Worksheet Patient Problems: Problems Problem Status Onset Acute leukemia Acute Elevated troponin Acute Gastrointestinal hemorrhage Acute Generalized weakness Acute Leukocytosis Acute Dehydration Acute Diarrhea Acute Fall at home Acute Syncope Acute
[2016-11-21 14:20] LABS: PML/RARA FINAL DIAGNOSIS See Comments; PML/RARA SPECIMEN BONE MARROW; PMLR RESULT see interpretation
--- NOTE | 2016-11-21 14:22 | HOSPPROG ---
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 onc: peripheral blasts w thrombocytopenia and anemia, flow and marrow c/w AML per oncology hydroxyurea helping, wbc's lower they plan to get 2nd opinion at [facility] appreciate oncology assistance, they are considering their options anemia: s/p packed cells thrombocytopenia: mild contraindication to pharm VTE proph indet trop: per pt and daughter, had recent negative nuc stress test as outpt no chest sx code: dnr dispo: inpatient, planning for SNF in 1-2 days Subjective: Pt contiues to feel quite weak. No fevers/chills. Poor oral intake. Objective: Vital Signs Temp Pulse Resp BP Pulse Ox 36.1 C 98 16 140/95 H 93 11/21/16 07:31 11/21/16 07:31 11/21/16 07:31 11/21/16 07:31 11/21/16 07:31 Laboratory Results 11/21/16 04:11 11/21/16 04:11 11/20/16 11/21/16 11/22/16 05:59 05:59 05:59 Intake Total 1864 1100 Output Total 375 1600 Balance 1489 -500 PT 13.7 SEC (12.0-15.0) 11/17/16 10:00 INR 1.06 (0.83-1.16) 11/17/16 10:00 - Physical Exam Constitutional: no apparent distress Eyes: PERRL Ears, Nose, Mouth, Throat: dry mucous membranes Cardiovascular: regular rate and rhythym Respiratory: no respiratory distress Gastrointestinal: normoactive bowel sounds, soft, non-tender abdomen Skin: warm Musculoskeletal: full muscle strength Neurologic: AAOx3 Psychiatric: interacting appropriately ICD10 Worksheet Patient Problems: Problems Problem Status Onset Acute leukemia Acute Elevated troponin Acute Gastrointestinal hemorrhage Acute Generalized weakness Acute Leukocytosis Acute Dehydration Acute Diarrhea Acute Fall at home Acute Syncope Acute
[2016-11-21] MEDS: NS 1,000 ML IV SCH (18:48)
[2016-11-21] MEDS: ZOLPIDEM TARTRATE 5 MG TAB PO SCH (20:49)
[2016-11-22] MEDS: BIOTENE DRY MOUTH MOUTHWASH 237 ML BTL MM SCH ×6 (04:30→23:26)
[2016-11-22 05:39] LABS: % IMMATURE GRANULYOCYTES 0.1 % (0.0-1.1); ABSOLUTE IMMATURE GRANULOCYTES 0.03 10^3/uL (0.00-0.10); ABSOLUTE NRBC COUNT 0.25 10^3/uL (0-0.01); ADD DIFF? NO; ADD MORPH? YES; ADD SCAN? YES; ATYPICAL LYMPHOCYTE FLAG 0 (0-99); FRAGMENT RBC FLAG 0 (0-99); HEMATOCRIT 26.9 % (38.0-47.0); HEMOGLOBIN 8.9 g/dL (12.6-16.3); LEFT SHIFT FLG 0 (0-99); LIPEMIA HEMOLYSIS FLAG 80 (0-99); MEAN CELL HEMOGLOBIN 34.2 pg (27.9-34.1); MEAN CELL HEMOGLOBIN CONCENTR. 33.1 g/dL (32.4-36.7); MEAN CELL VOLUME 103.5 fL (81.5-99.8); MEAN PLATELET VOLUME 10.3 fL (8.7-11.7); NRBC-AUTO% 0.8 % (0.0-0.2); PLATELET CLUMPS FLAG 0 (0-99)
[2016-11-22 05:48] LABS: RED CELL DISTRIBUTION WIDTH 21.3 % (11.5-15.2)
[2016-11-22 05:49] LABS: PLATELET COUNT 26 10^3/uL (150-400)
[2016-11-22 06:00] LABS: ANION GAP 12 mEq/L (8-16); CALCIUM 7.9 mg/dL (8.5-10.4); CARBON DIOXIDE 17 mEq/l (22-31); CHLORIDE 107 mEq/L (97-110); GLOMERULAR FILTRATION RATE 53; GLUCOSE 102 mg/dL (70-100); POTASSIUM 3.9 mEq/L (3.5-5.2); SODIUM 136 mEq/L (134-144)
[2016-11-22 07:49] LABS: ACANTHOCYTES 1+; MACROCYTES 1+
[2016-11-22 07:50] LABS: PLATELET ESTIMATE DECREASED (ADEQ)
[2016-11-22 07:52] LABS: SMUDGE CELLS 1+
[2016-11-22] MEDS: ACETAMINOPHEN 325 MG TAB PO PRN ×3 (09:38→22:01)
[2016-11-22] MEDS ORDERED: NS 500 ML IV ONE (09:59)
--- NOTE | 2016-11-22 10:03 | HOSPPROG ---
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 AML: hydroxyurea helping, wbc's lower they plan to get 2nd opinion at [facility] d/w onc tachycardia: suspect volume depletion given poor oral intake check ekg to confirm sinus bolus NS and increase IVF rate consider CTA to r/o PE if persists given risk factors with ca and poor mobility. she has no symptoms. anemia: s/p packed cells, stable thrombocytopenia: plts downtrending, no e/o active bleeding. no transfusion indication, follow contraindication to pharm VTE proph indet trop: per pt and daughter, had recent negative nuc stress test as outpt no chest sx code: dnr dispo: inpatient, planning for SNF in 1-2 days Subjective: Pt has right shoulder pain after daughter tried to move her. She has known severe OA. No CP or SOB. No fevers/chills. She has ambulated to the BR. Appetite improving. Objective: Vital Signs Temp Pulse Resp BP Pulse Ox 36.8 C 106 H 20 129/60 H 95 11/22/16 08:32 11/22/16 08:32 11/22/16 08:32 11/22/16 08:32 11/22/16 08:32 Laboratory Results 11/22/16 04:42 11/22/16 04:42 11/21/16 11/22/16 11/23/16 05:59 05:59 05:59 Intake Total 1100 875 Output Total 1600 700 Balance -500 175 PT 13.7 SEC (12.0-15.0) 11/17/16 10:00 INR 1.06 (0.83-1.16) 11/17/16 10:00 - Physical Exam Constitutional: no apparent distress Eyes: PERRL Ears, Nose, Mouth, Throat: moist mucous membranes Cardiovascular: tachycardia Respiratory: no respiratory distress, clear to auscultation Gastrointestinal: normoactive bowel sounds, soft, non-tender abdomen Skin: warm Musculoskeletal: other (right shoulder tenderness with movement) Neurologic: AAOx3 Psychiatric: interacting appropriately ICD10 Worksheet Patient Problems: Problems Problem Status Onset Acute leukemia Acute Elevated troponin Acute Gastrointestinal hemorrhage Acute Generalized weakness Acute Leukocytosis Acute Dehydration Acute Diarrhea Acute Fall at home Acute Syncope Acute
[2016-11-22] MEDS: FLUoxetine 20 MG CAP PO SCH (10:48)
[2016-11-22] MEDS: MULTIVITAMINS 1 EACH TAB PO SCH (10:48)
[2016-11-22] MEDS: ALLOPURINOL 300 MG TAB PO SCH (10:48)
[2016-11-22] MEDS: PANTOPRAZOLE SODIUM 40 MG TAB PO SCH (10:49)
[2016-11-22] MEDS: TOPIRAMATE 25 MG TAB PO SCH ×2 (10:49→22:02)
[2016-11-22] MEDS: HYDROXYUREA 500 MG CAP PO SCH ×3 (11:08→22:01)
[2016-11-22] MEDS: NS 1,000 ML IV SCH (15:35)
--- NOTE | 2016-11-22 16:01 | SOAPPROG ---
SOAP Progress Note Assessment/Plan: A/P: * AML: PS worsening. Reviewed with son and daughter that she may not be a candidate for treatment (clinical trial or Vidaza), but rather best supportive care with Hospice. WBC controlled with Hydrea. They had planned for d/c to [facility] Thursday and appt with Dr. Garcia at [facility] regarding clinical trial mid-week. Will see how she does over the next couple of days. * Anemia, thrombocytopenia: due to AML and Hydrea. No indication for xfus today. * Elevated uric acid: due to AML, on allopurinol. 11/22/16 15:57 Subjective: More fatigue, sleeping more, weaker. O: VS reviewed. Gen: weak, fatigued, NAD. Lungs: CTA. CV: no edema. Abd: nontender. Laboratory Tests 11/22/16 11/22/16 04:42 04:42 WBC 31.28 H Hgb 8.9 L Plt Count 26 L* Absolute Seg Neuts 0.63 L Absolute Band Neuts 0.63 Sodium 136 Potassium 3.9 Chloride 107 Carbon Dioxide 17 L BUN 16 Creatinine 1.0 Estimated GFR 53 Objective: Vital Signs Temp Pulse Resp BP Pulse Ox 36.6 C 99 20 126/72 H 94 11/22/16 15:06 11/22/16 15:06 11/22/16 15:06 11/22/16 15:06 11/22/16 15:06 Laboratory Results 11/22/16 04:42 11/22/16 04:42 11/21/16 11/22/16 11/23/16 05:59 05:59 05:59 Intake Total 1100 875 Output Total 1600 700 Balance -500 175 PT 13.7 SEC (12.0-15.0) 11/17/16 10:00 INR 1.06 (0.83-1.16) 11/17/16 10:00 ICD10 Worksheet Patient Problems: Problems Problem Status Onset Acute leukemia Acute Elevated troponin Acute Gastrointestinal hemorrhage Acute Generalized weakness Acute Leukocytosis Acute Dehydration Acute Diarrhea Acute Fall at home Acute Syncope Acute
[2016-11-22] MEDS: SUMAtriptan 50 MG TAB PO PRN (16:18)
[2016-11-22] MEDS: ZOLPIDEM TARTRATE 5 MG TAB PO SCH (22:01)
[2016-11-23] MEDS: BIOTENE DRY MOUTH MOUTHWASH 237 ML BTL MM SCH ×6 (01:10→21:53)
[2016-11-23] MEDS ORDERED: NS 1,000 ML IV ONE (02:05)
[2016-11-23 04:48] LABS: HEMATOCRIT 25.2 % (38.0-47.0); HEMOGLOBIN 8.6 g/dL (12.6-16.3); LIPEMIA HEMOLYSIS FLAG 90 (0-99); MEAN CELL HEMOGLOBIN 34.7 pg (27.9-34.1); MEAN CELL HEMOGLOBIN CONCENTR. 34.1 g/dL (32.4-36.7); MEAN CELL VOLUME 101.6 fL (81.5-99.8); PLATELET CLUMPS FLAG 0 (0-99); RED BLOOD CELL COUNT 2.48 10^6/uL (4.18-5.33)
[2016-11-23 04:51] LABS: RED CELL DISTRIBUTION WIDTH 20.5 % (11.5-15.2)
[2016-11-23 04:52] LABS: PLATELET COUNT 22 10^3/uL (150-400)
[2016-11-23 05:25] LABS: PLATELET ESTIMATE DECREASED (ADEQ)
[2016-11-23] MEDS: PANTOPRAZOLE SODIUM 40 MG TAB PO SCH (05:27)
[2016-11-23] MEDS: ACETAMINOPHEN 325 MG TAB PO PRN ×2 (08:45→15:51)
[2016-11-23] MEDS: NS 1,000 ML IV SCH (08:49)
[2016-11-23] MEDS: TOPIRAMATE 25 MG TAB PO SCH ×2 (08:51→21:34)
[2016-11-23] MEDS: ALLOPURINOL 300 MG TAB PO SCH (08:51)
[2016-11-23] MEDS: HYDROXYUREA 500 MG CAP PO SCH ×3 (08:51→21:36)
[2016-11-23] MEDS: MULTIVITAMINS 1 EACH TAB PO SCH (08:52)
[2016-11-23] MEDS: FLUoxetine 20 MG CAP PO SCH (08:53)
[2016-11-23] MEDS ORDERED: ZOLPIDEM TARTRATE 5 MG TAB PO PRN (11:51)
--- NOTE | 2016-11-23 11:51 | HOSPPROG ---
Hospitalist Progress Note Assessment/Plan: 81 yo F with acute AML, planning for hospice AML: wbc's down on hydrea. however, she is weaker every day, condition worse. not a candidate for treatment per oncology. vagal event: occurred on commode. she is a full lift at this point and just getting up to the commode is problematic. bladder scan >400, will place cotto for comfort shoulder pain: h/o severe OA, lidoderm patch ordered, cont prn tylenol, added low dose oxycodone as she is quite painful at this time tachycardia: ?volume depletion given poor oral intake vs symptomatic anemia s/p multiple fluid boluses without improvement dysphagia: speech / swallow eval anemia: s/p packed cells, stable thrombocytopenia: plts downtrending, no e/o active bleeding. no transfusion indication, follow onc to decrease hydrea dose contraindication to pharm VTE proph indet trop: per pt and daughter, had recent negative nuc stress test as outpt no chest sx code: dnr dispo: inpatient, hospice eval this afternoon, plan for d/c to [facility] tomorrow Subjective: Pt looks much worse today, very weak. Became nearly unresponsive on commode, requiring full lift. Having a lot of shoulder pain. Family desires hospice. Objective: Vital Signs Temp Pulse Resp BP Pulse Ox 38.2 C 117 H 18 144/82 H 93 11/23/16 10:17 11/23/16 08:20 11/23/16 08:20 11/23/16 08:20 11/23/16 08:20 Microbiology 11/17/16 12:07 Blood Culture - Final Blood Laboratory Results 11/23/16 04:37 11/22/16 04:42 11/22/16 11/23/16 11/24/16 05:59 05:59 05:59 Intake Total 875 1500 Output Total 700 950 Balance 175 550 PT 13.7 SEC (12.0-15.0) 11/17/16 10:00 INR 1.06 (0.83-1.16) 11/17/16 10:00 - Physical Exam Constitutional: uncomfortable Eyes: PERRL Ears, Nose, Mouth, Throat: moist mucous membranes Cardiovascular: tachycardia Respiratory: no respiratory distress, inspiratory crackles Gastrointestinal: normoactive bowel sounds, soft, non-tender abdomen Skin: warm Musculoskeletal: generalized weakness ICD10 Worksheet Patient Problems: Problems Problem Status Onset Acute leukemia Acute Elevated troponin Acute Gastrointestinal hemorrhage Acute Generalized weakness Acute Leukocytosis Acute Dehydration Acute Diarrhea Acute Fall at home Acute Syncope Acute
[2016-11-23] MEDS ORDERED: oxyCODONE IR 5 MG TAB PO PRN (13:59)
[2016-11-23] MEDS ORDERED: LIDOCAINE 2% JELLY 20 ML (UROJECT) UR ONE (14:32)
[2016-11-23] MEDS: LIDOCAINE 5% 1 EA PATCH TD SCH (14:40)
--- NOTE | 2016-11-23 16:17 | SOAPPROG ---
SOAP Progress Note Assessment/Plan: A/P: * AML: She is not a candidate for treatment given her performance status. Family is comfortable with hospice. They are meeting with hospice today to discuss most appropriate location for care ([place] vs. inpatient care center). WBC controlled with Hydrea and will reduce dose to avoid more significant thrombocytopenia. * Low grade fever: given plan for hospice, will treat with levofloxacin and not pursue ggressive IV abx and w/u. * Anemia, thrombocytopenia: due to AML and Hydrea. No indication for xfus today. * Elevated uric acid: due to AML, on allopurinol. 11/23/16 16:14 Subjective: Worse today per son and staff. Weaker and more confused. O: Tm 38.2 VS reviewed. Gen: more confused than yesterday. Lungs: breathing comfortably, few crackles. Abd: nontender. Laboratory Tests 11/22/16 11/23/16 04:42 04:37 WBC 19.01 H D Hgb 8.6 L Plt Count 22 L* Sodium 136 Potassium 3.9 Chloride 107 Carbon Dioxide 17 L BUN 16 Creatinine 1.0 Glucose 102 H Objective: Vital Signs Temp Pulse Resp BP Pulse Ox 38.1 C 124 H 24 H 118/72 99 11/23/16 15:40 11/23/16 15:40 11/23/16 15:40 11/23/16 15:40 11/23/16 15:40 Microbiology 11/17/16 12:07 Blood Culture - Final Blood Laboratory Results 11/23/16 04:37 11/22/16 04:42 11/22/16 11/23/16 11/24/16 05:59 05:59 05:59 Intake Total 875 1500 Output Total 700 950 0 Balance 175 550 0 PT 13.7 SEC (12.0-15.0) 11/17/16 10:00 INR 1.06 (0.83-1.16) 11/17/16 10:00 ICD10 Worksheet Patient Problems: Problems Problem Status Onset Acute leukemia Acute Elevated troponin Acute Gastrointestinal hemorrhage Acute Generalized weakness Acute Leukocytosis Acute Dehydration Acute Diarrhea Acute Fall at home Acute Syncope Acute
[2016-11-23] MEDS ORDERED: PATCH REMOVAL 1 EA PATCH TD SCH (21:00)
[2016-11-24] MEDS: BIOTENE DRY MOUTH MOUTHWASH 237 ML BTL MM SCH ×4 (02:00→14:47)
[2016-11-24] MEDS ORDERED: HYDROmorphONE/DILAUDID 1 MG/ML SYR IVP PRN (02:05)
[2016-11-24] MEDS: PANTOPRAZOLE SODIUM 40 MG TAB PO SCH (07:54)
[2016-11-24] MEDS: LIDOCAINE 5% 1 EA PATCH TD SCH (07:59)
[2016-11-24] MEDS: TOPIRAMATE 25 MG TAB PO SCH (08:01)
[2016-11-24] MEDS: HYDROXYUREA 500 MG CAP PO SCH (08:01)
[2016-11-24] MEDS: FLUoxetine 20 MG CAP PO SCH (08:01)
[2016-11-24] MEDS: MULTIVITAMINS 1 EACH TAB PO SCH (08:01)
[2016-11-24] MEDS: ALLOPURINOL 300 MG TAB PO SCH (08:01)
[2016-11-24] MEDS: ACETAMINOPHEN 325 MG TAB PO PRN (10:07)
[2016-11-24] MEDS ORDERED: BISACODYL 10 MG SUPP PR PRN (11:28)
[2016-11-24] MEDS ORDERED: ATROPINE 1% 5 ML OPHT.BTL SL PRN (11:28)
[2016-11-24] MEDS ORDERED: MAGNESIUM HYDROXIDE 30 ML UDCUP PO PRN (11:28)
[2016-11-24] MEDS ORDERED: LORazepam 1 MG TAB PO PRN (11:28)
[2016-11-24] MEDS ORDERED: morphINE 10 MG/0.5 ML UDSYR PO PRN (11:28)
[2016-11-24 13:09] VITALS: TEMP 98.2
--- NOTE | 2016-11-24 13:15 | SOAPPROG ---
SOAP Progress Note Assessment/Plan: A/P: * AML: She is not a candidate for treatment given her performance status. Family is comfortable with hospice and she will transferred to inpatient care center today. * Fever: underlying infection likely. d/c abx. Disc. plan and goals of care with daughters, son-in-law, RN, and [facility] staff. 11/24/16 13:17 Subjective: Denies pain. She has continued to decline. Family met with [facility] yesterday. O: 38.4 this a.m. Gen: confused. Lungs: noisy upper airway sounds. No labs. Objective: Vital Signs Temp Pulse Resp BP Pulse Ox 36.8 C 124 H 18 98/60 L 93 11/24/16 13:08 11/24/16 09:30 11/24/16 09:30 11/24/16 09:30 11/24/16 09:30 Laboratory Results 11/23/16 04:37 11/22/16 04:42 11/23/16 11/24/16 11/25/16 05:59 05:59 05:59 Intake Total 1500 1355 Output Total 950 450 250 Balance 550 905 -250 PT 13.7 SEC (12.0-15.0) 11/17/16 10:00 INR 1.06 (0.83-1.16) 11/17/16 10:00 ICD10 Worksheet Patient Problems: Problems Problem Status Onset Acute leukemia Acute Elevated troponin Acute Gastrointestinal hemorrhage Acute Generalized weakness Acute Leukocytosis Acute Dehydration Acute Diarrhea Acute Fall at home Acute Syncope Acute
[2016-11-24 14:27] VITALS: BP 92/42; PULSE 117; RESP 24; O2SAT 3
--- NOTE | 2016-11-24 16:29 | GDS ---
[f rep st] DISCHARGE SUMMARY DISCHARGE DIAGNOSES: 1. Acute myelogenous leukemia. 2. Sinus tachycardia. 3. Dysphagia. 4. Anemia. 5. Thrombocytopenia. CONSULTANTS: Moisés Willingham MD, Oncology. IMAGING STUDIES/PROCEDURES: Bone marrow biopsy was performed November 18, 2016, by Dr. Anju Willingham. The b one marrow core biopsy confirmed acute myeloid leukemia. HISTORY: For details, please see the history and physical dated November 17, 2016. In brief, the patien sonia is an 81-year-old female with a history of chronic migraines, anxiety, depression, and thrombocyto penia, who presented to the emergency department with generalized weakness. She was admitted to the hospital for further evaluation. HOSPITAL COURSE: Initial workup in the emergency department revealed a white blood cell count of 49 ,000 with a platelet count of 34,000. It was suspected her generalized weakness was secondary to an acute leukemia. Oncology consult was obtained. Bone marrow biopsy was performed. Results did confirm AML. Her white blood cell count r ose to 81,000. She was started on hydroxyurea, which did affect a reduction in her white cells. Maira boss had persistent thrombocytopenia with a platelet count of 22 at the time of discharge. She had no evidence of active bleeding. Unfortunately, her condition rapidly deteriorated and it was felt by O ncology that she was not a candidate for treatment given her poor functional status. After multiple discussions with family, they opted to have a hospice consult, and given the patient's grave condit ion she will be transferred to inpatient hospice for ongoing end of life care. DISPOSITION: The patient was transferred to inpatient hospice in relatively stable condition. DISCHARGE MEDICATIONS: Please see [facility] for complete updated outpatient medication list. New me dications on discharge include Lidoderm patch and Protonix. Further comfort care medications will b e ordered per the hospice team. /[id number]/MODL
[2016-11-25 09:10] LABS: BANDING METHODS See Comments; INTERPRETATION See Comments
[2016-11-27 11:38] LABS: MISCELLANEOUS TEST See Comments
== END 2016-11-24 15:28 | disposition hospice, home (50) | DRG 835 ==
LOC: F1N 13:15
PROVIDERS: ADMIT Internal Medicine; ATTEND Internal Medicine
PROC: 07DR3ZX Extraction of Iliac Bone Marrow, Percutaneous Approach, Diagnostic (ICD-10-PCS; principal; 2016-11-18)
PROC: 30233N1 Transfusion of Nonautologous Red Blood Cells into Peripheral Vein, Percutaneous Approach (ICD-10-PCS; 2016-11-18)
DX: C92.00 Acute myeloblastic leukemia, not having achieved remission (principal); N17.9 Acute kidney failure, unspecified; R00.0 Tachycardia, unspecified; R13.10 Dysphagia, unspecified; D69.6 Thrombocytopenia, unspecified; G43.909 Migraine, unspecified, not intractable, without status migrainosus; F41.8 Other specified anxiety disorders; M19.011 Primary osteoarthritis, right shoulder; Z66 Do not resuscitate
CPT/HCPCS: 85060-90; 88184-90; 88185-91; 88237-90; 88262-90; 97110-GP; 97116-GP; 97161-GP; 97530-GP; G8978-GP-CJ; G8979-GP-CI; J1170; P9016